=== PATIENT | female | born 1960 | race Caucasian/White ===

== ENCOUNTER 2023-03-24 07:55 | Outpatient (OUT) | payer MEDICARE, OTHER, SELFPAY ==
--- NOTE | 2023-03-24 08:08 | US_ITS ---
The [address] [address] Patient Name: MEHUL CHASE MRN: [id number] date: 1960 Sex: F Assigned Patient Location: Current Patient Location: US Accession/Order Number: [id number] Exam Date: 03/24/2023 08:08 Report Date: 03/24/2023 11:33 At the request of: DYLAN NI Procedure: US renal BI EXAMINATION: US renal BI HISTORY: CHRONIC KIDNEY DISEASE COMPARISON: No relevant comparison available. TECHNIQUE: Ultrasound examination was performed of the kidneys and urinary bladder. FINDINGS: RIGHT KIDNEY: No evidence of pelvocaliectasis, mass, or calculi. Normal renal cortical parenchymal echogenicity. Color Doppler demonstrates blood flow within the kidney. No significant cortical thinning, 1.4 cm in thickness. Kidney: 11.0 x 5.0 x 4.7 cm LEFT KIDNEY: No evidence of pelvocaliectasis, mass, or calculi. Normal renal cortical parenchymal echogenicity. Color Doppler demonstrates blood flow within the kidney. Mild cortical thinning, 1.1 cm in thickness. Kidney: 9.0 x 4.3 x 5.1 cm BLADDER: No visible wall thickening, mass, or calculi. OTHER: Heterogeneous multiseptated large cyst versus cystic mass within left pelvis 18.0 x 15.3 x 11.6 cm. IMPRESSION: 1. No hydronephrosis, mass, or obstructive uropathy bilaterally. 2. Mild cortical thinning, likely age related. 3. Large left pelvic complex cyst versus cystic mass, 18.[address] abdomen and pelvis with IV and oral contrast is recommended for further evaluation. Electronically authenticated by: JOSE BROWNING Date: 03/24/2023 11:33
== END 2023-03-24 07:56 ==
LOC: US 08:01
PROVIDERS: PCP Family Medicine; Visit Provider Internal Medicine Nephrology
DX: E11.22 Type 2 diabetes mellitus with diabetic chronic kidney disease (principal); N18.31 Chronic kidney disease, stage 3a; I12.9 Hypertensive chronic kidney disease with stage 1 through stage 4 chronic kidney disease, or unspecified chronic kidney disease; R19.00 Intra-abdominal and pelvic swelling, mass and lump, unspecified site
CPT/HCPCS: 76775

== ENCOUNTER 2023-04-14 08:17 | Outpatient (OUT) | payer MEDICARE, SELFPAY ==
--- NOTE | 2023-04-14 08:24 | CT_ITS ---
[address] [address] Patient Name: MEHUL CHASE MRN: [id number] date: 1960 Sex: F Assigned Patient Location: CT Current Patient Location: CT Accession/Order Number: [id number] Exam Date: 04/14/2023 09:26 Report Date: 04/14/2023 11:39 At the request of: DENEEN DAVIS Procedure: CT abdomen pelvis wo con EXAM: CT abdomen pelvis wo con HISTORY: Renal mass N28.89, Chronic kidney disease, stage 3 N18.30 COMPARISON: 03/24/2023 TECHNIQUE: Axial CT images were obtained of the abdomen and pelvis without intravenous contrast. Multiplanar reconstructions were performed. ABDOMEN/PELVIS FINDINGS: Lower Chest: Unremarkable. Liver: Normal nonenhanced appearance and contour. Biliary/Gallbladder: Unremarkable. Pancreas: Unremarkable. Spleen: Unremarkable. Adrenal Glands: Unremarkable. Kidneys: No renal calculus or hydronephrosis identified. Gastrointestinal/Peritoneum: No acute abnormality. Mild colonic diverticulosis is present. The appendix is unremarkable. No free air or free fluid. Vascular: Mild scattered atherosclerotic calcifications are present. Lymph Nodes: No enlarged lymph nodes by CT size criteria. Pelvic Organs: There is a large cystic mass in the left adnexal region of the pelvis measuring 15.5 x 11.8 x 17.3 cm. Some internal septation is appreciated with minimal calcification along the inferior margin septations. Further evaluation is limited due to the lack of intravenous contrast. Prior hysterectomy noted. Mild pelvic prolapse is present. Bladder: Unremarkable. Bones: No acute osseous abnormality. Soft tissues: Unremarkable. IMPRESSION: 1. Large cystic mass in the left adnexal region of the pelvis with some internal septation and calcification. Evaluation is limited due to the absence of intravenous contrast. Benign or malignant cystic neoplasm of the pelvis should be considered, possibly of ovarian origin. 2. Prior hysterectomy. 3. Mild pelvic prolapse. 4. Mild colonic diverticulosis. Electronically authenticated by: DASHA LANDEROS Date: 04/14/2023 11:39
== END 2023-04-14 08:18 | disposition home or self-care (01) ==
LOC: CT 08:18
PROVIDERS: PCP Family Medicine; Visit Provider Urology
DX: N28.89 Other specified disorders of kidney and ureter (principal); N18.30 Chronic kidney disease, stage 3 unspecified
CPT/HCPCS: 74176

== ENCOUNTER 2023-05-22 09:50 | Outpatient (OUT) | payer MEDICARE, SELFPAY ==
[2023-05-22 10:12] LABS: Basophils Percent Auto 0.6 % (0.2-2.0); Eosinophils Absolute Auto 0.2 10^3/uL (0.0-0.7); Eosinophils Percent Auto 2.8 % (0.9-7.0); Hematocrit 35.7 % (36.0-48.0); Hemoglobin 11.7 g/dL (12.0-16.0); Immature Granulocytes Abs Auto 0.03 10^3/uL (0.00-0.03); Immature Granulocytes Pct Auto 0.5 % (0.0-0.5); Lymphocytes Percent Auto 32.7 % (20.5-60.0); Mean Corpuscular HGB Conc 32.8 g/dL (29.9-35.2); Mean Corpuscular Hemoglobin 27.7 pg (26.7-34.0); Mean Corpuscular Volume 84.6 fL (81.0-99.0); Mean Platelet Volume 8.4 fL (9.5-13.5); Monocytes Absolute Auto 0.6 10^3/uL (0.3-0.8); Monocytes Percent Auto 9.5 % (1.7-12.0); Neutrophils Absolute Auto 3.3 10^3/uL (1.4-6.5); Neutrophils Percent Auto 53.9 % (43.0-75.0); Platelet Count 360 10^3/uL (150-450); Red Blood Count 4.22 10^6/uL (4.20-5.40); White Blood Count 6.2 10^3/uL (4.0-11.0)
[2023-05-22 10:45] LABS: Alanine Aminotransferase 23 U/L (14-59); Albumin Globulin Ratio 1.1; Albumin Level 4.1 g/dL (3.4-5.0); Alkaline Phosphatase 47 U/L (46-116); Anion Gap 15.7; Aspartate Amino Transferase 25 U/L (15-37); BUN Creatinine Ratio 16.6; Bilirubin Total 0.7 mg/dL (0.2-1.0); Calcium 9.3 mg/dL (8.5-10.1); Carbon Dioxide 24.4 mmol/L (21.0-32.0); Chloride 96 mmol/L (98-107); Estimated GFR (African America 44 (>=60); Estimated GFR (Non-African Ame 36 (>=60); Globulin 3.9 g/dL; Glucose 99 mg/dL (74-106); Potassium 4.1 mmol/L (3.5-5.1); Sodium 132 mmol/L (136-145)
[2023-05-23 04:23] LABS: AFP, Serum, Tumor Marker 1.9 ng/mL (0.0-9.2); Cancer Antigen (CA) 125 25.2 U/mL (0.0-38.1); HCG Tumor Marker 5 mIU/mL (.)
== END 2023-05-22 09:51 | disposition home or self-care (01) ==
LOC: LAB 09:50
PROVIDERS: Physician Assistant; PCP Family Medicine; Visit Provider Obstetrics & Gynecology
DX: R19.00 Intra-abdominal and pelvic swelling, mass and lump, unspecified site (principal); R97.8 Other abnormal tumor markers; R53.83 Other fatigue
CPT/HCPCS: 36415; 80053; 82105; 82378; 83615; 83625; 84443; 84702; 85025; 86304

== ENCOUNTER 2023-05-28 10:27 | Outpatient (OUT) | payer MEDICARE, SELFPAY ==
--- NOTE | 2023-05-28 10:30 | US_ITS ---
The [address] [address] Patient Name: MEHUL CHASE MRN: [id number] date: 1960 Sex: F Assigned Patient Location: [facility] Current Patient Location: [facility] Accession/Order Number: [id number] Exam Date: 05/28/2023 10:31 Report Date: 05/28/2023 10:58 At the request of: ERICK ANN Procedure: US pelvis Ultrasound pelvis, non-obstetric CLINICAL: PELVIC MASS TECHNIQUE: Transabdominal pelvic ultrasound was performed. FINDINGS: Comparison: CT 04/14/2023 Uterus is not visualized, compatible with history of surgical resection. There is a complex cystic mass in the left adnexa/pelvis measuring approximately 20 x 16 x 13 cm. There are thickened internal septations. No significant vascular flow. Ovaries are not visualized. US/US pelvis IMPRESSION: 1. Approximate 20 x 16 x 13 cm complex left adnexal/pelvic mass. This was also seen by CT 04/14/2023. Ovarian cystic neoplasm of indeterminate character should be considered until proven otherwise. Recommend gynecologic follow-up. 2. Hysterectomy. Electronically authenticated by: YOHAN NAVARRETE Date: 05/28/2023 10:58
== END 2023-05-28 10:28 | disposition home or self-care (01) ==
LOC: NOMS 10:27
PROVIDERS: PCP Family Medicine; Visit Provider Physician Assistant
DX: R19.09 Other intra-abdominal and pelvic swelling, mass and lump (principal); R93.5 Abnormal findings on diagnostic imaging of other abdominal regions, including retroperitoneum; N83.9 Noninflammatory disorder of ovary, fallopian tube and broad ligament, unspecified; Z90.710 Acquired absence of both cervix and uterus
CPT/HCPCS: 76856

== ENCOUNTER 2023-06-12 07:50 | Outpatient (OUT) | payer MEDICARE, SELFPAY ==
--- NOTE | 2023-06-12 08:00 | ECG_ITS ---
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
== END 2023-06-12 07:51 | disposition home or self-care (01) ==
LOC: PST 07:51
PROVIDERS: PCP Family Medicine; Visit Provider Obstetrics & Gynecology
DX: Z01.810 Encounter for preprocedural cardiovascular examination (principal); R19.00 Intra-abdominal and pelvic swelling, mass and lump, unspecified site; N83.299 Other ovarian cyst, unspecified side; R10.2 Pelvic and perineal pain; N18.9 Chronic kidney disease, unspecified; E11.22 Type 2 diabetes mellitus with diabetic chronic kidney disease
CPT/HCPCS: 80048; 93005

== ENCOUNTER 2023-06-19 08:19 | Inpatient (IN) | payer MEDICARE, SELFPAY ==
[2023-06-12 08:48] VITALS: BP 135/83; PULSE 90; RESP 16; TEMP 36.3; O2SAT 97; BMI 26.5
[2023-06-18] VITALS (14 sets, daily range): BP systolic 107–155; BP diastolic 65–81; PULSE 55–82; RESP 10–18; TEMP 36–36.8; O2SAT 92–100
[2023-06-18 08:27] LABS: Basophils Absolute Auto 0.1 10^3/uL (0.0-0.1); Basophils Percent Auto 0.8 % (0.2-2.0); Eosinophils Absolute Auto 0.2 10^3/uL (0.0-0.7); Eosinophils Percent Auto 3.2 % (0.9-7.0); Hematocrit 36.3 % (36.0-48.0); Hemoglobin 11.7 g/dL (12.0-16.0); Immature Granulocytes Abs Auto 0.01 10^3/uL (0.00-0.03); Immature Granulocytes Pct Auto 0.2 % (0.0-0.5); Lymphocytes Absolute Auto 2.2 10^3/uL (1.2-3.8); Lymphocytes Percent Auto 36.3 % (20.5-60.0); Mean Corpuscular HGB Conc 32.2 g/dL (29.9-35.2); Mean Corpuscular Hemoglobin 27.7 pg (26.7-34.0); Mean Platelet Volume 8.3 fL (9.5-13.5); Monocytes Absolute Auto 0.5 10^3/uL (0.3-0.8); Monocytes Percent Auto 8.9 % (1.7-12.0); Neutrophils Percent Auto 50.6 % (43.0-75.0); Platelet Count 384 10^3/uL (150-450); Red Blood Count 4.22 10^6/uL (4.20-5.40); Red Cell Distribution Width 15.3 % (11.0-15.0); White Blood Count 5.9 10^3/uL (4.0-11.0)
[2023-06-18 08:55] LABS: Glucometer 118 mg/dL (74-106)
[2023-06-18] MEDS: LACTATED RINGER'S SOLUTION 1,000 ML 50 ML IV (09:06)
[2023-06-18] MEDS: CEFAZOLIN SODIUM/DEXTROSE,ISO 2 GM/50 ML PIGGYBACK IV ×3 (10:18→21:44)
[2023-06-18] MEDS: LACTATED RINGER'S SOLUTION 1,000 ML 125 ML IV ×2 (13:01→21:43)
--- NOTE | 2023-06-18 14:28 | P.CN_ITS ---
Consult Note: HPI Data of Consult Requesting Physician: Dr. Ronald Hunter Primary Care Provider: YANI POON Consult Narrative Reason for consult: medical management Narrative: patient is a 63-year-old female past medical history of non- insulin- dependent type 2 diabetes, hypothyroidism, hypertension, hyperlipidemia and CKD uncertain stage. Today she underwent surgical resection of left adnexal/pelvic mass by Dr. Ronald Hunter. Post operatively she denies any current issues. No nausea or pain. She reports at home her Blood pressure, sugars have been under control. She is compliant with medications. cc:: CC: Sarwat Solo MD Review of Systems ROS Narrative ROS: a complete review of systems were reviewed with patient and are positive as below or listed in History of Chief Complaint. General: no fever, chills, night sweats Head: no headache, trauma, visual changes, nausea or vomiting Skin: no reported rashes, itching or sores Eyes: no blurriness of vision Ears: no reported hearing loss, vertigo, earache, or tinnitus Throat: no sore throat, hoarseness, swelling of neck, or tongue pain Heart: no chest pain Lungs: no shortness of breath or cough GI: no diarrhea or vomiting/nausea Urinary: no urinary urgency, frequency or pain Neuro: no numbness or tingling HEM: no bleeding issues or bruising ENDO: no thyroid problems Psych: no anxiety or depression PFSH PFSH Medical History Surgical History Family History Other Family history of bone cancer Family history of diabetes mellitus Family history of hypertension Family history of seizures Family history of throat cancer Irregular heart beat Social History Within the past year, how often did you have a drink containing alcohol: monthly or less Smoking status: Former smoker Non-prescribed substance use: denies use Previous occupational history: Retired Highest level of school completed/degree received: high school graduate Meds Home Medications and Allergies Home Medications Medication Instructions Recorded Confirmed Type albuterol sulfate 90 mcg/actuation 2 puff inhalation Q4H PRN 06/12/23 06/18/23 History aerosol inhaler (Ventolin HFA) shortness of breath or wheezing atorvastatin 40 mg tablet 40 mg PO QDAY 06/12/23 06/18/23 History hydrochlorothiazide 25 mg tablet 25 mg PO QDAY 06/12/23 06/18/23 History irbesartan 300 mg tablet 300 mg PO QDAY 06/12/23 06/18/23 History lamotrigine 100 mg tablet 100 mg PO Q12H 06/12/23 06/18/23 History levothyroxine 112 mcg tablet 112 mcg PO QDAY 06/12/23 06/18/23 History metformin 500 mg tablet 500 mg PO BID 06/12/23 06/18/23 History ibuprofen 800 mg tablet 800 mg PO Q8H PRN pain 14 days #40 06/18/23 Rx tabs oxycodone-acetaminophen 5 mg-325 1 tab PO Q6H PRN pain 7 days #28 06/18/23 Rx mg tablet (Percocet) tabs Allergies Allergy/AdvReac Type Severity Reaction Status Date / Time bacitracin Allergy Rash Verified 06/12/23 08:26 [From Neosporin ([id number])] neomycin Allergy Rash Verified 06/12/23 08:26 [From Neosporin ([id number])] polymyxin B Allergy Rash Verified 06/12/23 08:26 [From Neosporin ([id number])] Exam Narrative Exam Narrative: General: Patient is alert, and oriented to person, place and time with normal affect, proper hygiene Skin: no visible rashes, or ulcers Head: atraumatic, acephalic Eyes: PERRLA, no nystagmus present, conjunctiva clear, no scleral icterus Ears:normal gross auditory acuity Nose: symmetric, no discharge, no maxillary or frontal sinus tenderness Mouth/Throat: no erythema, exudate, or tonsillar enlargement, normal dentition Neck: no masses palpated, normal thyroid, no JVD or audible carotid bruits Heart: Normal rate and rhythm, no murmurs/rubs/gallops Lungs: no audible wheezes, crackles and normal breath sounds all lung valentine Abdomen: Normal audible bowel sounds, no distension, No palpable masses, no organomegaly, no rebound/guarding/ or rigidity Musculoskeletal: ROM is limited due to being in hospital bed, no swelling bilateral lower extremities Vascular: Normal carotid, radial, femoral, posterior tibial, and dorsalis pedis pulses Lymph: no supraclavicular, axillary, or anterior/posterior cervical adenopathy Neuro: CN II-X grossly intact, normal sensation upper and lower extremities Constitutional Vital Signs, click to edit/add: Last Vital Signs Temp 97.6 F 06/18/23 13:30 Pulse 66 06/18/23 13:30 Resp 16 06/18/23 13:30 BP 115/70 06/18/23 13:30 Pulse Ox 96 06/18/23 13:30 O2 Del Method Room Air 06/18/23 13:30 Results Labs Labs: Short CBC 06/18/23 Range/Units 08:24 WBC 5.9 (4.0-11.0) 10^3/uL Hgb 11.7 L (12.0-16.0) g/dL Hct 36.3 (36.0-48.0) % Plt Count 384 (150-450) 10^3/uL Assessment and Plan Assessment and Plan (1) Pelvic mass: Assessment and Plan: post op currently, pain control and restrictions through primary team, Dr. Hunter (2) Diabetes: Assessment and Plan: sugars have been stable, resume metformin once eating, SSI if needed Qualifiers: Diabetes mellitus type: type 2 Diabetes mellitus terminal gauger supervisor insulin use: without terminal gauger supervisor use Diabetes mellitus complication status: with kidney complications (3) Hypertension: Assessment and Plan: continue irbesartan, hctz (4) Chronic kidney disease: Assessment and Plan: not sure baseline Qualifiers: Chronic kidney disease stage: unspecified stage Qualified Code(s): N1 8.9 - Chronic kidney disease, unspecified (5) Hyperlipidemia associated with type 2 diabetes mellitus: Assessment and Plan: may resume atorvastatin (6) Seizures: Assessment and Plan: continue lamotrigine, no recent seizure history Plan full code SCD's and compression garments for DVT prophylaxis patient is admitted post operatively and expected discharge tomorrow.
[2023-06-18 16:37] LABS: Glucometer 110 mg/dL (74-106)
[2023-06-18] MEDS: HYDROCHLOROTHIAZIDE 25 MG TABLET PO (16:46)
[2023-06-18] MEDS: ATORVASTATIN CALCIUM 40 MG TABLET PO (16:46)
--- NOTE | 2023-06-18 19:28 | RESP.RT ---
No PRN MDI given. No respiratory distress noted.
[2023-06-18] MEDS: LAMOTRIGINE 100 MG TABLET PO (21:43)
[2023-06-18 22:45] LABS: Glucometer 157 mg/dL (74-106)
[2023-06-19 05:13] LABS: Basophils Percent Auto 0.3 % (0.2-2.0); Eosinophils Percent Auto 0.1 % (0.9-7.0); Hemoglobin 9.1 g/dL (12.0-16.0); Immature Granulocytes Abs Auto 0.03 10^3/uL (0.00-0.03); Immature Granulocytes Pct Auto 0.4 % (0.0-0.5); Lymphocytes Absolute Auto 1.6 10^3/uL (1.2-3.8); Lymphocytes Percent Auto 22.4 % (20.5-60.0); Mean Corpuscular HGB Conc 32.5 g/dL (29.9-35.2); Mean Corpuscular Hemoglobin 27.7 pg (26.7-34.0); Mean Corpuscular Volume 85.4 fL (81.0-99.0); Mean Platelet Volume 8.7 fL (9.5-13.5); Monocytes Absolute Auto 0.7 10^3/uL (0.3-0.8); Monocytes Percent Auto 9.8 % (1.7-12.0); Neutrophils Absolute Auto 4.9 10^3/uL (1.4-6.5); Platelet Count 321 10^3/uL (150-450); Red Blood Count 3.28 10^6/uL (4.20-5.40); Red Cell Distribution Width 15.2 % (11.0-15.0); White Blood Count 7.3 10^3/uL (4.0-11.0)
[2023-06-19 05:33] LABS: Estimated GFR (African America 48 (>=60); Estimated GFR (Non-African Ame 40 (>=60)
[2023-06-19 06:00] VITALS: BP 107/67; PULSE 79; RESP 18; TEMP 36.6; O2SAT 91
[2023-06-19 06:41] VITALS: TEMP 36.6
[2023-06-19] MEDS: DOCUSATE SODIUM 100 MG CAPSULE PO (06:41)
[2023-06-19] MEDS: ATORVASTATIN CALCIUM 40 MG TABLET PO (08:23)
[2023-06-19] MEDS: HYDROCHLOROTHIAZIDE 25 MG TABLET PO (08:23)
[2023-06-19] MEDS: LOSARTAN POTASSIUM 50 MG TABLET 100 MG PO (08:23)
[2023-06-19] MEDS: LEVOTHYROXINE SODIUM 112 MCG TABLET PO (08:24)
[2023-06-19] MEDS: LAMOTRIGINE 100 MG TABLET PO (08:24)
[2023-06-19] MEDS: MAGNESIUM HYDROXIDE 2,400 MG/10 ML ORAL.SUSP 2400 MG PO (08:28)
--- NOTE | 2023-06-19 10:28 | CM.NOTE ---
Rounds made with Dr. Malloy. Dr. Malloy consulted for medical management. Potential discharge today per Dr. Hunter.
--- NOTE | 2023-06-19 10:38 | SWNOTE1 ---
SW met with pt to discuss dc needs. Pt lives at home with her and she is independent at home. Pt has no concerns about discharge. SW reviewed Important Message from Medicare form with pt, she voiced understanding, no questions. GRANT made copy, original given to pt and copy placed in chart.
[2023-06-19 11:00] LABS: Glucometer 115 mg/dL (74-106)
[2023-06-19 11:24] VITALS: O2SAT 90
--- NOTE | 2023-06-19 13:23 | PM.GYNPN2 ---
[employer] - PN: Subj Post-Op Interval history: denies n.v.d.f.c denies cp sob ct, pain is minimal, positive flatus, neg bm, denies lightheaded or dizziness Subjective: patient has no complaints, patient desires discharge, pain is well controlled and patient is tolerating oral intake Exam Constitutional Vital Signs, click to edit/add: Last Vital Signs Temp 97.9 F 06/19/23 06:41 Pulse 79 06/19/23 06:00 Resp 18 06/19/23 06:00 BP 107/67 06/19/23 06:00 Pulse Ox 90 L 06/19/23 11:24 O2 Del Method Room Air 06/19/23 11:24 Documenting provider has reviewed patient's vital signs: yes Common normals: no apparent distress Respiratory Common normals: normal respiratory effort and clear to auscultation bilaterally Cardio Common normals: regular rate and regular rhythm GI Common normals: Normal to inspection, nondistended, normoactive bowel sounds present Extremity Common normals: no clubbing, cyanosis or edema and no calf tenderness Results Labs Labs: Short CBC 06/19/23 Range/Units 04:09 WBC 7.3 (4.0-11.0) 10^3/uL Hgb 9.1 L (12.0-16.0) g/dL Hct 28.0 L (36.0-48.0) % Plt Count 321 (150-450) 10^3/uL BMP 06/19/23 04:09 BUN 22.0 H Creatinine 1.33 H [employer] - A/P Assessment and Plan (1) Pelvic mass: (2) Diabetes: Qualifiers: Diabetes mellitus type: type 2 Diabetes mellitus intermediate insulin use: without terminal make up operator use Diabetes mellitus complication status: with kidney complications (3) Hypertension: (4) Chronic kidney disease: Qualifiers: Chronic kidney disease stage: unspecified stage Qualified Code(s): N18.9 - Chronic kidney disease, unspecified (5) Hyperlipidemia associated with type 2 diabetes mellitus: (6) Seizures: Postoperative Procedures: Procedures Operation Date: 06/18/23 09:45 Actual Procedure Side Surgeon p Exploratory Laparotomy WITH LEFT OVARIAN CYSTECTOMY Bilateral Ronald Hunter DO Postoperative day: 1 Postoperative status [employer]: doing well Post-operative plan [employer]: routine post-op care and discharge Fall Risk Details Patton fall scale risk level: Moderate Fall Risk Current medications: Current Medications Albuterol (Albuterol Sulfate 200 Puff/6.7 Gm Inhaler) 2 puff IH Q4H PRN PRN Reason: shortness of breath or wheezing Atorvastatin Calcium (Atorvastatin Calcium 40 Mg Tablet) 40 mg PO QD [facility] Last Admin: 06/19/23 08:23 Dose: 40 mg Docusate Sodium (Docusate Sodium 100 Mg Capsule) 100 mg PO BID PRN PRN Reason: Constipation Last Admin: 06/19/23 06:41 Dose: 100 mg Hydrochlorothiazide (Hydrochlorothiazide 25 Mg Tablet) 25 mg PO QD [facility] Last Admin: 06/19/23 08:23 Dose: 25 mg Lactated Ringer's (Lactated Ringers) 1,000 mls @ 125 mls/hr IV Q8H [facility] Last Admin: 06/19/23 08:24 Dose: Not Given Ibuprofen (Ibuprofen 600 Mg Tablet) 800 mg PO Q6H PRN PRN Reason: Pain Scale 4-6 Insulin Aspart (Insulin Aspart 300 Unit/3 Ml Pen) 3 - 15 unit SUBQ [facility]; Protocol Last Admin: 06/19/23 11:05 Dose: Not Given Ketorolac Tromethamine (Ketorolac Tromethamine 30 Mg/Ml Vial) 30 mg IVP Q6H PRN PRN Reason: Pain Lamotrigine (Lamotrigine 100 Mg Tablet) 100 mg PO BID [facility] Last Admin: 06/19/23 08:24 Dose: 100 mg Levothyroxine Sodium (Levothyroxine Sodium 112 Mcg Tablet) 112 mcg PO QD [facility] Last Admin: 06/19/23 08:24 Dose: 112 mcg Losartan Potassium (Losartan Potassium 50 Mg Tablet) 100 mg PO QD [facility] Last Admin: 06/19/23 08:23 Dose: 100 mg Ondansetron HCl (Ondansetron Pf 4 Mg/2 Ml Vial) 4 mg IV Q6H PRN PRN Reason: Nausea Oxycodone/Acetaminophen (Oxycodone Hcl/Acetaminophen 1 Tab Tablet) 1 tab PO Q6H PRN PRN Reason: Pain Last Admin: 06/19/23 05:30 Dose: 1 tab Oxycodone/Acetaminophen (Oxycodone Hcl/Acetaminophen 1 Tab Tablet) 2 tab PO Q6H PRN PRN Reason: Pain Promethazine HCl (Promethazine Hcl 25 Mg/Ml Vial) 12.5 mg IV Q6H PRN PRN Reason: Nausea And Vomiting Simethicone (Simethicone 80 Mg Tab.Chew) 80 mg PO PCHS PRN PRN Reason: Abdominal Distention Temazepam (Temazepam 15 Mg Capsule) 30 mg PO QHS PRN PRN Reason: Sleep Time Spent With Patient Time: Total time spent is greater than 50% in coordination of care (as documented) at patient's floor/unit and/or counseling patient: Time with patient: 25 - 35 minutes
[2023-06-19 14:24] LABS: Basophils Percent Auto 0.3 % (0.2-2.0); Eosinophils Absolute Auto 0.1 10^3/uL (0.0-0.7); Eosinophils Percent Auto 1.2 % (0.9-7.0); Hematocrit 32.2 % (36.0-48.0); Hemoglobin 10.5 g/dL (12.0-16.0); Immature Granulocytes Abs Auto 0.04 10^3/uL (0.00-0.03); Immature Granulocytes Pct Auto 0.5 % (0.0-0.5); Lymphocytes Absolute Auto 2.6 10^3/uL (1.2-3.8); Lymphocytes Percent Auto 30.4 % (20.5-60.0); Mean Corpuscular HGB Conc 32.6 g/dL (29.9-35.2); Mean Corpuscular Hemoglobin 27.5 pg (26.7-34.0); Mean Corpuscular Volume 84.3 fL (81.0-99.0); Monocytes Absolute Auto 0.7 10^3/uL (0.3-0.8); Monocytes Percent Auto 7.8 % (1.7-12.0); Neutrophils Absolute Auto 5.2 10^3/uL (1.4-6.5); Neutrophils Percent Auto 59.8 % (43.0-75.0); Platelet Count 367 10^3/uL (150-450); Red Blood Count 3.82 10^6/uL (4.20-5.40); Red Cell Distribution Width 15.2 % (11.0-15.0); White Blood Count 8.6 10^3/uL (4.0-11.0)
--- NOTE | 2023-06-27 | DS_ITS ---
DISCHARGE DATE: ??06/27/2023 PRIMARY DIAGNOSES: 1.? Left adnexal mass. 2.? Left ovarian cyst. 3.? Pelvic pain. PROCEDURE:? Exploratory laparotomy with left ovarian cystotomy, left ovarian cystectomy. HOSPITAL COURSE:? As expected.? Please see chart for full details.? LABORATORY DATA:? Please see chart. COMPLICATIONS:? None. DISCHARGE CONDITION:? Stable. CONSULTATION:? Anesthesia. DISCHARGE INSTRUCTIONS: 1.? Diet:? Regular. 2.? Medications: a.? Percocet 5/325 one to two p.o. every 4-6 hours p.r.n. pain. b.? Motrin 800 one p.o. every 8 hours p.r.n. pain. 3.? Followup in one week. Restrictions:? Pelvic rest for 6 weeks.? No heavy lifting.? May drive when pain free and no longer on narcotics. MTDD
--- NOTE | 2023-06-27 07:50 | PM.ONB ---
Brief Operative Note Date of procedure: 06/27/23 Pre-op diagnosis: lt adnexal mass, pelvic pain Post-op diagnosis: same as pre-op Procedure: NAME OF PROCEDURE: [ ]GUSTAVO BSO WITH CYSTOSCOPY PROCEDURE: Patient was taken back to the Operating Room where she was given general anesthesia without difficulty. She was then prepped and draped in the normal sterile fashion. A Pfannenstiel skin incision was then made 2 cm above the symphysis and pubis and carried down to underlying rectus fascia using a Bovie. The fascia was incised in the midline and extended bilaterally using Treadwell scissors. Two Ramana clamps were placed on the superior aspect of the fascia and dissected off the underlying rectus muscle. The same was performed on the inferior aspect as well. The muscle was then in the midline. The peritoneum was identified and entered bluntly. Peritoneum was then extended superiorly and inferiorly with good visualization of the bladder. An O'Jkopuakd-L-Prhyut retractor was placed into the patient's abdomen. The bowel was packed away with moist laparotomy sponges and the bladder blade was inserted. The lt ovary was idenitified which appeared cystic in nature, approx 20cm in size, in attempted to localize ovary and cyst, cyst ruptured and fluid was collected, additional fluid removed, several cysts noted, additional fluid and cyst was removed, could not remove ovary in enitirity dt to adhesion to colon, pelvic side wall and ureter, it was decided to leave remainder of ovary since low suspicion for ovarian ca. Excellent hemostasis was assured. The patient's abdomen was copiously irrigated using warm saline. After excellent hemostasis was assured, all instruments were removed from the patient's abdomen. The patient's peritoneum was closed using 3-0 Vicryl in a running fashion. The patient's fascia was closed using #0 Vicryl in a running fashion. The patient's skin was closed using jurgen. The patient tolerated the procedure well. Sponge, lap, and needle counts were correct times two. Patient taken to the Recovery Room in stable condition. please note robotic hysterectomy was attempted and aborted dt size of uterus and extensive endometriosis with adhesions Anesthesia: ALEXA Surgeon: Ronald Hunter Supervisor Delivery Department: Erica Vazquez Estimated blood loss (mL): 100 Pathology: other (fluid and cyst wall) Condition: stable Disposition: PACU
== END 2023-06-19 14:52 | disposition home or self-care (01) | DRG 743 ==
LOC: SURGOUT 08:40 → MS 08:40
PROVIDERS: Anesthesiology; Admitting Provider Obstetrics & Gynecology; PCP Family Medicine; Visit Provider Obstetrics & Gynecology
DX: N83.292 Other ovarian cyst, left side (principal); E11.40 Type 2 diabetes mellitus with diabetic neuropathy, unspecified; E11.22 Type 2 diabetes mellitus with diabetic chronic kidney disease; I12.9 Hypertensive chronic kidney disease with stage 1 through stage 4 chronic kidney disease, or unspecified chronic kidney disease; N18.9 Chronic kidney disease, unspecified; E78.5 Hyperlipidemia, unspecified; G40.909 Epilepsy, unspecified, not intractable, without status epilepticus; G43.909 Migraine, unspecified, not intractable, without status migrainosus; K21.9 Gastro-esophageal reflux disease without esophagitis; J45.909 Unspecified asthma, uncomplicated; R10.2 Pelvic and perineal pain; E89.0 Postprocedural hypothyroidism; N73.6 Female pelvic peritoneal adhesions (postinfective); N80.9 Endometriosis, unspecified; Z85.850 Personal history of malignant neoplasm of thyroid; Z87.891 Personal history of nicotine dependence; Z88.1 Allergy status to other antibiotic agents; Z90.710 Acquired absence of both cervix and uterus; Z98.890 Other specified postprocedural states; Z83.3 Family history of diabetes mellitus; Z82.49 Family history of ischemic heart disease and other diseases of the circulatory system; Z80.8 Family history of malignant neoplasm of other organs or systems; Z82.0 Family history of epilepsy and other diseases of the nervous system; Z79.84 Long term (current) use of oral hypoglycemic drugs; Z79.890 Hormone replacement therapy; Z79.899 Other long term (current) drug therapy
CPT/HCPCS: 36415; 82565; 82948; 84520; 85025; 88112; 94667; 94668; 94761; 96365; J2704

== ENCOUNTER 2023-07-01 10:54 | Outpatient (OUT) | payer MEDICARE, SELFPAY ==
[2023-07-01 11:37] LABS: Hemoglobin 10.6 g/dL (12.0-16.0)
[2023-07-01 11:38] LABS: Bilirubin Urine NEGATIVE (NEGATIVE); Blood Urine NEGATIVE (NEGATIVE); Clarity Urine CLEAR (CLEAR); Color Urine LT. YELLOW (YELLOW); Glucose Urine UA NEGATIVE (NEGATIVE); Ketones Urine NEGATIVE (NEGATIVE); Leukocyte Esterase Urine NEGATIVE (NEGATIVE); Nitrite Urine NEGATIVE (NEGATIVE); Protein Urine NEGATIVE (NEG/TRACE); Urobilinogen Urine 0.2 EU/dL (0.2-1.0)
[2023-07-01 11:43] LABS: Creatinine Urine Random 37.24 mg/dL (20.00-300.00); Protein Creatinine Ratio Urine 0.25; Total Protein Urine Random 9.4 mg/dL (<=11.9)
[2023-07-01 11:46] LABS: Alanine Aminotransferase 15 U/L (14-59); Albumin Globulin Ratio 0.9; Albumin Level 3.5 g/dL (3.4-5.0); Alkaline Phosphatase 57 U/L (46-116); Anion Gap 12.9; Aspartate Amino Transferase 17 U/L (15-37); BUN Creatinine Ratio 20.6; Bilirubin Total 0.4 mg/dL (0.2-1.0); Carbon Dioxide 22.6 mmol/L (21.0-32.0); Chloride 97 mmol/L (98-107); Estimated GFR (African America >60 (>=60); Estimated GFR (Non-African Ame 51 (>=60); Globulin 3.9 g/dL; Glucose 96 mg/dL (74-106); Magnesium 2.2 mg/dL (1.8-2.4); Phosphorus 2.9 mg/dL (2.6-4.7); Potassium 4.5 mmol/L (3.5-5.1); Sodium 128 mmol/L (136-145); Total Protein 7.4 g/dL (6.4-8.2); Uric Acid 6.2 mg/dL (2.6-6.0)
[2023-07-02 14:10] LABS: PTH, Intact 54 pg/mL (15-65)
== END 2023-07-01 10:55 | disposition home or self-care (01) ==
LOC: LAB 10:57
PROVIDERS: PCP Family Medicine; Visit Provider Internal Medicine Nephrology
DX: I12.9 Hypertensive chronic kidney disease with stage 1 through stage 4 chronic kidney disease, or unspecified chronic kidney disease (principal); N18.31 Chronic kidney disease, stage 3a; E11.22 Type 2 diabetes mellitus with diabetic chronic kidney disease
CPT/HCPCS: 36415; 80053; 81003; 82306; 82570; 83735; 83970; 84100; 84156; 84550; 85014; 85018

== ENCOUNTER 2024-04-30 11:32 | Outpatient (OUT) | payer MEDICARE, SELFPAY ==
[2024-04-30 12:31] LABS: Basophils Percent Auto 0.4 % (0.2-2.0); Eosinophils Absolute Auto 0.2 10^3/uL (0.0-0.7); Eosinophils Percent Auto 3.3 % (0.9-7.0); Hematocrit 31.5 % (36.0-48.0); Immature Granulocytes Abs Auto 0.02 10^3/uL (0.00-0.03); Immature Granulocytes Pct Auto 0.3 % (0.0-0.5); Lymphocytes Absolute Auto 2.3 10^3/uL (1.2-3.8); Lymphocytes Percent Auto 34.1 % (20.5-60.0); Mean Corpuscular HGB Conc 31.7 g/dL (29.9-35.2); Mean Corpuscular Hemoglobin 26.7 pg (26.7-34.0); Mean Platelet Volume 9.2 fL (9.5-13.5); Monocytes Absolute Auto 0.6 10^3/uL (0.3-0.8); Monocytes Percent Auto 8.9 % (1.7-12.0); Neutrophils Absolute Auto 3.6 10^3/uL (1.4-6.5); Platelet Count 391 10^3/uL (150-450); Red Blood Count 3.75 10^6/uL (4.20-5.40); Red Cell Distribution Width 14.4 % (11.0-15.0); White Blood Count 6.9 10^3/uL (4.0-11.0)
[2024-04-30 14:28] LABS: Alanine Aminotransferase 18 U/L (14-59); Albumin Level 4.1 g/dL (3.4-5.0); Alkaline Phosphatase 66 U/L (46-116); Anion Gap 18.5; Aspartate Amino Transferase 19 U/L (15-37); BUN Creatinine Ratio 16.6; Bilirubin Total 0.4 mg/dL (0.2-1.0); Calcium 8.8 mg/dL (8.5-10.1); Carbon Dioxide 20.7 mmol/L (21.0-32.0); Chloride 96 mmol/L (98-107); Estimated GFR (African America 40 (>=60); Estimated GFR (Non-African Ame 33 (>=60); Glucose 101 mg/dL (74-106); Potassium 4.2 mmol/L (3.5-5.1); Sodium 131 mmol/L (136-145); Total Protein 8.1 g/dL (6.4-8.2)
[2024-05-03 14:09] LABS: Lamotrigine (Lamictal), Serum 7.8 ug/mL (2.0-20.0)
== END 2024-04-30 11:33 | disposition home or self-care (01) ==
LOC: LAB 11:37
PROVIDERS: PCP Family Medicine; Visit Provider Physician Assistant
DX: G40.409 Other generalized epilepsy and epileptic syndromes, not intractable, without status epilepticus (principal)
CPT/HCPCS: 36415; 80053; 80175; 85025

== ENCOUNTER 2024-05-18 11:25 | Outpatient (OUT) | payer MEDICARE, SELFPAY ==
--- NOTE | 2024-05-18 11:32 | XR_ITS ---
[place] [id number] Patient Name: MEHUL CHASE MRN: [id number] date: 1960 Sex: F Assigned Patient Location: [facility] Current Patient Location: Accession/Order Number: [id number] Exam Date: 05/18/2024 11:40 Report Date: 05/19/2024 15:15 At the request of: YANI POON Procedure: XR abdomen min 2V EXAMINATION: XR abdomen min 2V HISTORY: Constipation, Abdominal Mass, Blood In Stool COMPARISON: No relevant comparison available. FINDINGS: BOWEL GAS PATTERN: No abnormal dilation or deviation. Moderate stool in the ascending colon CALCIFICATIONS: None significant. OTHER: Negative. No abnormal gaseous collections. XR/XR abdomen min 2V IMPRESSION: Moderate stool in the right colon, nonobstructive gas pattern Electronically authenticated by: RANJIT MEYERS Date: 05/19/2024 15:15
== END 2024-05-18 11:26 | disposition home or self-care (01) ==
LOC: RAD 11:27
PROVIDERS: PCP Family Medicine; Visit Provider Family Medicine
DX: R19.04 Left lower quadrant abdominal swelling, mass and lump (principal); K92.1 Melena; K59.00 Constipation, unspecified
CPT/HCPCS: 74019

== ENCOUNTER 2024-05-24 07:55 | Outpatient (OUT) | payer MEDICARE, SELFPAY ==
--- OUTSIDE RECORDS SUMMARY | 2024-05-24 07:57 | XMS_ITS | CCD ---
Author Organization [facility] Care Team Providers Care Colors Custodian Name Role Phone DR ANNETTA POON Primary Care Unavailable FELICIANO ., MR DARNELL Consulting Unavailable MINOR .OMAYRA Admitting Unavailable MINOR .OMAYRA Attending Unavailable RANJIT GAFFNEY Consulting Unavailable Nora Ni Unavailable Wisam DAVIS Attending Unavailable NORA NI Referring Unavailable Annetta Poon MD Primary Care Provider Annetta Poon MD Primary Care Provider [phone] ANNETTA POON Referring Unavailable ANNETTA POON Primary Care Unavailable ANNETTA POON Attending Unavailable FANI HARVEY Attending Unavailable ANNETTA POON Attending Unavailable Allergies Allergy Classification Reported Allergen(s) Allergy Type Date of Onset Reaction(s) Facility (3 sources) Bacitracin / Neomycin / Polymyxin B Drug Allergy 5 rash [facility] (1 source) Bacitracin Drug Allergy 3 [facility] (1 source) Bacitracin / Polymyxin B Drug Allergy 3 [facility] (1 source) Gramicidin Drug Allergy 3 [facility] (1 source) Neomycin Drug Allergy 3 [facility] (1 source) Polymyxin B Drug Allergy 3 [facility] (2 sources) Neomycin-Polymyx in-Gramicidin Drug Intolerance 8 Rash [facility] Medications Current Medications Medication Drug Class(es) Dates Sig (Normalized) Sig (Original) [id number] 200 actuat albuterol 0.09 mg/actuat metered dose inhaler (1 source) beta2-Adrenergic Agonist Start: 05-26-20 23 take 2 puff(s) by inhalation every four hours for wheezing albuterol HFA 90 mcg/act inhaler Indications: Pneumonia of right middle lobe due to infectious organism Inhale 2 puffs every 4 (four) hours if needed for wheezing. 18 g 1 05/26/2023 Active amLODIPine 5 mg oral tablet (1 source) Dihydropyridine Calcium Channel Baldomero Start: 07-08-20 take 1 tablet by mouth every twenty-four hours amLODIPine Besylate 5 MG 1 tablet Orally Once a day for 90 days Jun, Active atorvastatin 40 mg oral tablet (3 sources) HMG-CoA Reductase Inhibitor Start: 05-15-20 take 1 tablet by mouth in the morning atorvastatin (Lipitor) 40 MG tablet Indications: Hypertriglyceridemia (CMS/HCC) Take 1 tablet (40 mg) by mouth in the morning. 100 tablet 3 05/15/2023 Active Fish Oils (1 source) omega-3 (FISH OI L) 300 MG capsule Fish Oil 0 Active hydroCHLOROthiazide 25 mg oral tablet (2 sources) Thiazide Diuretic Start: 05-15-20 take 1 tablet by mouth in the morning hydroCHLOROthiazide (HYDRODiuril) 25 MG tablet Indications: Essential hypertension (CMS/HCC) Take 1 tablet (25 mg) by mouth in the morning. 100 tablet 3 05/15/2023 Active take 1 tablet by robbie th every twenty-four hours hydroCHLOROthiazide 25 MG 1 tablet in e morning Orally Once a day Active irbesartan 300 mg oral tablet (3 sources) Angiotensin 2 Receptor Baldomero Start: 04-02-2023 irbesartan (Avapro) 300 MG tablet Refills(s) 0 0 04/02/2023 Active lamoTRIgine 100 mg oral tablet (4 sources) Mood Stabilizer, Anti-epileptic Agent Start: 04-02-2023 lamoTRIgine (LaMICtal) 100 MG tablet Refills(s) 0 0 04/02/2023 Active levothyroxine sodium 0.112 mg oral tablet (4 sources) l-Thyroxine Start: 05-15-2023 take 1 tablet by mouth before mealtime levothyroxine (Synthroid, Levoxyl) 112 MCG tablet Indications: Acquired hypothyroidism (CMS/HCC) Take 1 tablet (112 mcg) by mouth in the morning. Take before meals. 100 tablet 3 05/15/2023 Active take 1 tablet by robbie th once daily in the morning Levothyroxine Sodium 112 MCG 1 tablet in the morning on an empty stomach Orally EVERY DAY BUT MONDAYS AND THURSDAYS Active metFORMIN hydrochloride 500 mg oral tablet (3 sources) Biguanide Start: 01-13-2023 take 1 tablet by mouth in the morning metFORMIN (Glucophage) 500 MG tablet Take 500 mg by mouth in the morning and 500 mg in the evening. Take with meals. 0 01/13/2023 Active omeprazole 20 mg delayed release oral capsule (4 sources) Proton Pump Inhibitor take 1 capsule by mouth once daily omeprazole (PRILOSEC) 20 MG delayed release capsule Take 20 mg by mouth daily 0 Active take 1 capsule by mo uth in the morning, then take 1 capsule by mouth at bedtime omeprazole (PriLOSEC) [address] capsule TAKE 1 CAPSULE BY MOUTH IN THE MORNING AND 1 AT BEDTIME 0 Active valsartan 160 mg oral tablet (2 sources) Angiotensin 2 Receptor Baldomero take 1 tablet by mouth once daily valsartan (DIOVAN) 160 MG tablet Take 160 mg by mouth daily 0 Active Problems Active Problems Problem Classification Problem Date Documented Da te Episodic/Chronic Chronic kidney disease (5 sources) Chronic kidney disease stage 3A ; Translations: [Chronic kidney disease, stage 3a] Onset: 05-13-2023 05-13-2023 Chronic Deficiency and other anemia (1 source) Anemia, unspecified Episodic Delirium, dementia, and amnestic and other cognitive disorders (1 source) Postconcussion syndrome; Translations: [Postconcussional syndrome] Onset: 05-13-2023 05-13-2023 Chronic Diabetes mellitus with complications (5 sources) Type 2 diabetes mellitus; Translations: [Type 2 diabetes mellitus with diabetic chronic kidney disease] Onset: 05-13-2023 Chronic Diabetes mellitus without complication (2 sources) Diabetes mellitus; Translations: [Type 2 diabetes mellitus without complications] Onset: 05-13-2023 05-13-2023 Chronic Disorders of lipid metabolism (1 source) Hypertriglyceridemia ; Translations: [Pure hyperglyceridemia] Onset: 05-13-2023 05-13-2023 Chronic Epilepsy; convulsions (2 sources) Other generalized epilepsy and epileptic syndromes, not intractable, without status epilepticus; Translations: [Generalized convulsive epilepsy, without mention of intractable epilepsy] Onset: 05-13-2023 05-13-2023 Chronic Epilepsy; convulsions (2 sources) Seizure; Translations: [Unspecified convulsions] Onset: 05-13-2023 05-13-2023 Episodic Essential hypertension (5 sources) Essential hypertension; Translations: [Essential (primary) hypertension] Onset: 05-13-2023 Chronic Fluid and electrolyte disorders (1 source) Hypo-osmolality and hyponatremia Episodic Gastrointestinal hemorrhage (4 sources) Hemorrhage of anus and rectum; Translations: [HEMORRHAGE OF ANUS AND RECTUM] Onset: 02-09-2023 Episodic Hemorrhoids (1 source) Unspecified hemorrhoids; Translations: [UNSPECIFIED HEMORRHOIDS] Onset: 02-11-2023 Episodic Hypertension with complications and secondary hypertension (2 sources) Hypertensive renal disease; Translations: [Hypertensive chronic kidney disease with stage 1 through stage 4 chronic kidney disease, or unspecified chronic kidney disease] Chronic Menopausal disorders (1 source) Decreased estrogen level; Translations: [Other primary ovarian failure] Onset: 05-26-2023 05-26-2023 Chronic Menopausal disorders (1 source) Hormone replacement therapy; Translations: [HORMONE REPLACEMENT THERAPY] Onset: 02-11-2023 Episodic Other aftercare (1 source) Other long-term (current) drug therapy; Translations: [OTH NURSING HOME CURRENT DRUG THERAPY] Onset: 02-11-2023 Episodic Other aftercare (1 source) 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; Translations: [NURSING HOME USE ORAL HYPOGLYCEMIC DX] Onset: 02-11-2023 Episodic Other diseases of kidney and ureters (1 source) Disorder of kidney and/or ureter; Translations: [Other specified disorders of kidney and ureter] Chronic Other nutritional; endocrine; and metabolic disorders (1 source) Cholesterol level - finding; Translations: [Lipoprotein deficiency] Onset: 05-13-2023 05-13-2023 Chronic Other screening for suspected conditions (not mental disorders or infectious disease) (3 sources) Measurement finding above reference range; Translations: [Unspecified abnormal finding in specimens from other organs, systems and tissues] Onset: 05-13-2023 05-13-2023 Episodic Screening and history of mental health and substance abuse codes (1 source) Personal history of nicotine dependence; Translations: [PERSONAL HISTORY OF NICOTINE DEPEND] Onset: 02-11-2023 Episodic Thyroid disorders (2 sources) Hypothyroidism; Translations: [Hypothyroidism, unspecified] Onset: 05-13-2023 05-13-2023 Chronic Past or Other Problems Problem Classification Problem Date Documented Da te Episodic/Chronic Chronic kidney disease (2 sources) Chronic kidney disease Conditions associated with dizziness or vertigo (2 sources) Dizziness; Translations: [Dizziness and giddiness] Onset: 11-27-2017 05-13-2023 Episodic E Codes: Fall (1 source) Fall; Translations: [Unspecified fall, initial encounter] Onset: 11-27-2017 Resolved: 01-28-2018 01-28-2018 Episodic Gastritis and duodenitis (1 source) Gastritis; Translations: [Gastritis, unspecified, without bleeding] Onset: 05-13-2023 05-13-2023 Episodic Intracranial injury (2 sources) Concussion with no loss of consciousness; Translations: [Concussion without loss of consciousness, initial encounter] Onset: 11-27-2017 05-13-2023 Episodic Other gastrointestinal disorders (1 source) Pelvic mass; Translations: [Intra-abdominal and pelvic swelling, mass and lump, unspecified site] Onset: 05-13-2023 05-13-2023 Episodic Other injuries and conditions due to external causes (2 sources) Minor head injury; Translations: [Unspecified injury of head, initial encounter] Onset: 11-27-2017 05-13-2023 Episodic Other lower respiratory disease (1 source) Nodule of lung; Translations: [Solitary pulmonary nodule] Onset: 05-13-2023 05-13-2023 Episodic Pneumonia (except that caused by tuberculosis or sexually transmitted disease) (1 source) Infective pneumonia; Translations: [Pneumonia, unspecified organism] Onset: 05-26-2023 05-26-2023 Episodic Results Test Name Value Interpretation Reference Range Facility DBT Breast - bilateral scree scottyn 01-08-2024 No evidence of malignancy. Advise annual screening mammography. BI-RADS 2 BIRADS: BIRADS - CATEGORY 2 Benign Findings. Normal interval follow-up is recommended in 12 months. OVERALL ASSESSMENT - BENIGN A letter of notification will be sent to the patient regarding the results. The [employer] recommends annual mammograms for women 40 years and older. [facility] RIS CONSOLIDATED EXAMINATION: SCREENING DIGITAL BILATERAL MAMMOGRAM WITH TOMOSYNTHESIS, 01/07/2024 TECHNIQUE: Screening mammography was performed with tomosynthesis including MLO and CC views of the bilateral breasts. Computer aided detection was used for the interpretation of this exam. COMPARISON: 27 August 2019; 10 April 2017 from [facility] HISTORY: Screening. Positive family history of breast cancer; paternal aunt at 70. 10 year history of oral contraception. No hormonal replacement therapy. FINDINGS: Both breasts are composed of scattered fibroglandular density. No skin thickening, nipple contour changes, suspicious calcifications, suspicious masses, areas of architectural distortion or significant interval changes are noted. Benign-appearing calcifications are demonstrated. [facility] RIS CONSOLIDATED DBT Breast - bilateral scree Scottyrdered By: Janelle Rivas on 01-08-2024 [facility] Work Phone: [facility] DIGITAL SCREEN BILElsa Pelaez 01-08-2024 [facility] DIGITAL SCREEN BILATERAL EXAMINATION: SCREENING DIGITAL BILATERAL MAMMOGRAM WITH TOMOSYNTHESIS, 01/07/2024 TECHNIQUE: Screening mammography was performed with tomosynthesis including MLO and CC views of the bilateral breasts. Computer aided detection was used for the interpretation of this exam. COMPARISON: 27 August 2019; 10 April 2017 from [facility] HISTORY: Screening. Positive family history of breast cancer; paternal aunt at 70. 10 year history of oral contraception. No hormonal replacement therapy. FINDINGS: Both breasts are composed of scattered fibroglandular density. No skin thickening, nipple contour changes, suspicious calcifications, suspicious masses, areas of architectural distortion or significant interval changes are noted. Benign-appearing calcifications are demonstrated. IMPRESSION: No evidence of malignancy. Advise annual screening mammography. BI-RADS 2 BIRADS: BIRADS - CATEGORY 2 Benign Findings. Normal interval follow-up is recommended in 12 months. OVERALL ASSESSMENT - BENIGN A letter of notification will be sent to the patient regarding the results. [employer] recommends annual mammograms for women 40 years and older. Interpreted by: Janelle Rivas MD Signed by: Janelle Rivas MD 01/08/24 Final result Normal [facility] DBT Breast - bilateral dimitris fajardorita 01-07-2024 Radiology Study observation (narrative) [facility] RAD - Ultrasound Reporton RAD - Ultrasound Report [id number] CD:127 Normal [facility] Ambulatory Visit Summaryon 0 6-14-2023 Ambulatory Visit Summary MEHUL CHASE :1960 Visit Date:04/02/2023 Ambulatory Visit Instructions Your Diagnosis Pelvic mass Chronic kidney disease, stage 3 Tests Performed Urnls Dip Stick Auto w/o Microscopy POC 26[address] CT Abdomen/Pelvis w/o Contrast -- Results Pending -- Please visit your patient portal for your results or contact your primary care physician. Your Care Team Attending Physician - RYAN SEXTON, Wisam Avery Primary Care Physician - NORA NI MD Referring Physician - NORA NI MD This Is Your Medications List atorvastatin (atorvastatin 40 mg Tab) hydrochlorothiazide (hydrochlorothiazide 25 mg Tab) irbesartan (irbesartan 300 mg Tab) lamotrigine (lamotrigine 100 mg Tab) levothyroxine (levothyroxine 112 mcg (0.112 mg) Tab) metformin (metformin 500 mg Tab) omeprazole (omeprazole 40 mg Cap-DR) Procedures Performed Hysterectomy, Thyroidectomy, Tonsillectomy. Discharge Vitals Heart Rate (Peripheral) 95 Blood Pressure 152/80 Height 157.4 cm Height 62 in Weight 69.0 kg Weight 151.8 lb BMI 27.85 What to do next You Need to Schedule the Following Appointments Follow Up with YRAN SEXTON, Wisam Avery, ARTEM When: Where: [address] [place] [address] Medications What When Instructions Unchanged atorvastatin (atorvastatin 40 mg Tab) Unchanged hydrochlorothiazide (hydrochlorothiazide 25 mg Tab) Unchanged irbesartan (irbesartan 300 mg Tab) Unchanged lamotrigine (lamotrigine 100 mg Tab) Unchanged levothyroxine (levothyroxine 112 mcg (0.112 mg) Tab) Unchanged metformin (metformin 500 mg Tab) Unchanged omeprazole (omeprazole 40 mg Cap-DR) Test Results Urnls Dip Stick Auto w/o Microscopy POC 38461 (04/02/2023) Bilirubin Urine Dipstick - Negative Blood Urine Dipstick - Negative Glucose Urine Dipstick - Negative Ketones Urine Dipstick - Negative Leukocytes Urine Dipstick - Negative Nitrite Urine Dipstick - Negative Protein Urine Dipstick - Negative Specific [place] Urine Dipstick - 1.015 Urine Appearance Urine Dipstick - Clear Urine Color Urine Dipstick - Yellow Urobilinogen Urine Dipstick - Normal 0.2-1 EU/dl pH Urine Dipstick - 5.5 Allergies No Known Allergies Problems Ongoing - Any problem that you are currently receiving treatment for. Chronic kidney disease, stage 3 Diabetes Hypertension Hypothyroid Pelvic mass Seizure disorder [employer] Pelvic Mass, Female A pelvic mass is an abnormal growth in the pelvis. The pelvis is the area between the hip bones. It includes the bladder, rectum, uterus, and ovaries. What are the causes? Common causes of pelvic masses include: ? Ovarian cysts. These are fluid-filled sacs that form on an ovary. ? Tumors. These may be cancerous (malignant) or noncancerous (benign). Noncancerous tumors in the uterus are called uterine fibroids. ? Ectopic . This is when the fertilized egg attaches (implants) outside the uterus. ? Infections. What are the signs or symptoms? Many times, there are no symptoms, and the mass may be found during a routine exam. If there are symptoms, they may include: ? Abdominal pain. ? Nausea and vomiting. How is this diagnosed? Your health care provider may recommend that you have tests to diagnose the cause of the pelvic mass. The following tests may be done if a pelvic mass is found: ? Physical exam. ? Blood tests. ? Imaging tests: ? X-rays. ? Ultrasound. ? CT scan. ? MRI. ? A surgery to look inside your abdomen with cameras (laparoscopy). ? A biopsy that is performed with a needle or during laparoscopy or surgery. In some cases, what seemed like a pelvic mass may actually be something else, such as a mass in one of the organs that is near the pelvis, an infection called an abscess, or scar tissue that formed after a surgery. A physical exam and tests may be done once, or they may be done regularly for a period of time. Exams and tests that are done regularly will help monitor whether the mass or tissue change is growing and becoming a concern. How is this treated? Treatment is not always needed for a pelvic mass. Your health care provider may recommend careful monitoring (watchful waiting) and regular tests and exams. Treatment will depend on the cause of the mass. Follow these instructions at home: What you need to do at home will depend on the cause of the mass. Follow the instructions that your health care provider gives to you. In general: ? Take bywb-mvp-swevgga and prescription medicines only as told by your health care provider. ? If you were prescribed an antibiotic medicine, take it as told by your health care provider. Do not stop taking the antibiotic even if you start to feel better. ? Return to your normal activities as told by your health care provider. Ask your health care provider what activi (more content not included)... Normal [facility] Formson 04-02-2023 Forms [id number] CD:127 Normal [facility] Patient Educationon 04-02-20 23 Patient Education Obstetrics and Gynecology Pelvic Mass, Female A pelvic mass is an abnormal growth in the pelvis. The pelvis is the area between the hip bones. It includes the bladder, rectum, uterus, and ovaries. What are the causes? Common causes of pelvic masses include: ? Ovarian cysts. These are fluid-filled sacs that form on an ovary. ? Tumors. These may be cancerous (malignant) or noncancerous (benign). Noncancerous tumors in the uterus are called uterine fibroids. ? Ectopic . This is when the fertilized egg attaches (implants) outside the uterus. ? Infections. What are the signs or symptoms? Many times, there are no symptoms, and the mass may be found during a routine exam. If there are symptoms, they may include: ? Abdominal pain. ? Nausea and vomiting. How is this diagnosed? Your health care provider may recommend that you have tests to diagnose the cause of the pelvic mass. The following tests may be done if a pelvic mass is found: ? Physical exam. ? Blood tests. ? Imaging tests: ? X-rays. ? Ultrasound. ? CT scan. ? MRI. ? A surgery to look inside your abdomen with cameras (laparoscopy). ? A biopsy that is performed with a needle or during laparoscopy or surgery. In some cases, what seemed like a pelvic mass may actually be something else, such as a mass in one of the organs that is near the pelvis, an infection called an abscess, or scar tissue that formed after a surgery. A physical exam and tests may be done once, or they may be done regularly for a period of time. Exams and tests that are done regularly will help monitor whether the mass or tissue change is growing and becoming a concern. How is this treated? Treatment is not always needed for a pelvic mass. Your health care provider may recommend careful monitoring (watchful waiting) and regular tests and exams. Treatment will depend on the cause of the mass. Follow these instructions at home: What you need to do at home will depend on the cause of the mass. Follow the instructions that your health care provider gives to you. In general: ? Take mbia-irt-alugymc and prescription medicines only as told by your health care provider. ? If you were prescribed an antibiotic medicine, take it as told by your health care provider. Do not stop taking the antibiotic even if you start to feel better. ? Return to your normal activities as told by your health care provider. Ask your health care provider what activities are safe for you. ? Keep all follow-up visits. This is important. Contact a health care provider if: ? You develop new symptoms. ? You have a fever or chills. ? You cannot tolerate prescribed medicines. Get help right away if: ? You have blood in your stools (feces) or urine. ? You have an abnormal or increased amount of vaginal bleeding. ? You develop sudden or worsening pain that is not relieved by medicine. ? You develop severe bloating in your abdomen or your pelvis. ? You cannot pass urine or stools. Summary ? A pelvic mass is an abnormal growth in the pelvis. The pelvis is the area between your hip bones. It includes the bladder, rectum, uterus, and ovaries. ? Pelvic masses include ovarian cysts, tumors, ectopic , or infections. ? Your health care provider may recommend that you have tests to diagnose the cause of the pelvic mass. ? Treatment will depend on the cause of the mass. This information is not intended to replace advice given to you by your health care provider. Make sure you discuss any questions you have with your health care provider. Document Revised: 02/14/2022 Document Reviewed: 02/14/2022 [employer] Patient Education ? 2022 [employer] Normal [facility] Physician Referralon 023 Physician Referral [id number] 0CD:127 Normal [facility] Urology Office/Clinic Noteon 04-02-2023 Urology Office/Clinic Note Chief Complaint new patient HPI Staff 63 year old female new patient referral per Dr. Nora Ni due to left renal pelvis cystic mass Dysuria: no Incomplete bladder emptying: no Hematuria: no Frequency: no Urgency: no Nocturia: no Stream: good stream Leaking: no Post void dripping: no Wearing pads/ Depends: no Urge incontinence: no Stress incontinence: no Incontinence without Sensory Awareness: no Abdominal pain: no Flank pain: no Sexual complaints: no History of Present Illness Tests reviewed: reviewed UA I have reviewed the previous health record information and history for this patient from Dr. Melendez. I have reviewed and verified the staff HPI to be accurate for this encounter. There have been no associated fever, chills, flank pain, or blood in the urine. Denies any urinary infections since last encounter. Review of Systems PHQ Score Initial Depression Screen Score: 0 ROS - Provider Constitutional: denies weight loss, denies hot flashes. Eyes: denies eye problems. Gastrointestinal: denies nausea, denies vomiting. Cardiovascular: denies chest pain or angina. Integumentary: no dryness Musculoskeletal: denies musculoskeletal symptoms. ENMT: denies otolaryngeal symptoms. Respiratory: no shortness of breath. Heme/Lymph: denies easy bleeding tendency, denies easy bruising tendency. Psychiatric: no confusion, no anxiety. Genitourinary: denies vaginal discharge, denies incontinence, denies dysuria, denies hematuria, denies urinary frequency, denies amenorrhea, denies menorrhagia, denies abnormal bleeding, denies pelvic pain, denies genital sores, and denies decreased libido. Physical Exam Vitals & Measurements HR: 95(Peripheral) BP: 152/80 HT: 62 in HT: 157.4 cm WT: 69.0 kg WT: 151.8 lb BMI: 27.85 General Appearance: alert , no acute distress, well nourished, well developed female. Genitourinary: bladder nonpalpable, no flank pain. Assessment/Plan 1. Pelvic mass (R19.00: Intra-abdominal and pelvic swelling, mass and lump, unspecified site) Imaging shows left complex cyst vs cystic mass. Renal US was done due to her renal function being low. Educated pt on the differences between a complex cyst and a cystic mass. UA today is negative for blood and infection. -Will order a CT w/o contrast. Follow up after CT w/o contrast or sooner if needed. Pt understands and agrees with plan. 2. Chronic kidney disease, stage 3 (N18.30: Chronic kidney disease, stage 3 unspecified) Labs 01/14/23 - GFRe 48, increased risk of contrast toxicity, given Stage III renal failure. The patient is here with her today. She had a renal ultrasound ordered by nephrology secondary to stage III kidney failure. She subsequently referred to me for evaluation of cystic mass. The original report that was faxed from the [facility] was unreadable. We had a long discussion about the etiology of kidney masses and cysts etc. Currently unable to look at the study as well secondary to the [facility] is new electronic medical record. The report is now faxed and is now readable. Both kidneys appear to be within normal limits. The cystic mass versus multiseptated cyst is actually within the left true pelvis and measures 18.0 x 15.3 x 11.6 cm. I let the patient and her know this. She needs a CT scan of the abdomen pelvis but this has to be without contrast secondary to her renal failure. Depending on findings, may be recommending referral to [facility]. Absence of hematuria is noted on the urinalysis today. Patient and her are in agreement with the plan to follow-up after CT scan is obtained. 30 min spent. Follow-up With When Contact Information RYAN SEXTON, Wisam Avery, URL [address] [address]- Additional Instructions: Sched CT w/o Contrast Patient Education Pelvic Mass, Female I, Jennifer Bradford, personally scribed for Dr. Davis on 04/02/2023 09:34:01. . Documentation recorded by the scribJennifer cortes, accurately reflects the services(s) I performed and decisions made by me. Authenticated by Dr. Davis on 04/02/2023 09:35:36. Problem List/Past Medical History Ongoing Chronic kidney disease, stage 3 Diabetes Hypertension Hypothyroid Pelvic mass Seizure disorder Historical No qualifying data Procedure/Surgical History Hysterectomy, Thyroidectomy, Tonsillectomy. Medications atorvastatin 40 mg Tab hydrochlorothiazide 25 mg Tab irbesartan 300 mg Tab lamotrigine 100 mg Tab levothyroxine 112 mcg (0.112 mg) Tab metformin 500 mg Tab omeprazole 40 mg Cap-DR Allergies No Known Allergies Social History Tobacco Never (less than 100 in lifetime) Tobacco Use:., 04/02/2023 Family History Hypertension: Mother. Immunizations Vaccine Date Status SARS-CoV-2 (COVID-19) mRNA BNT-162b2 vax 10/10/2021 Recorded SARS-CoV-2 (COVID-19) mRNA BNT-1 (more content not included)... Normal [facility] Comment on above: Result Comment: Elec tronically Signed By: Wisam DAVIS MD\.br\Date and Time Signed: 04/02/23 09:38 EDT\.br\Electronically Co-Signed By: Jennifer Bradford\.br\Date and Time Co-Signed: 04/02/23 09:34 EDT CBC AUTO DIFFon 02-09-2023 BASO # 0.0 103/ul Normal 0.0-0.1 [facility] Comment on above: Performed By: #### C BC #### [facility] [address] [place] [address] Dr. Larissa Loco Basophils/100 WBC (Bld) 0.5 % Normal 0.2-2.0 [facility] Comment on above: Performed By: #### C BC #### [facility] [address] [place] [address] Dr. Larissa Loco EO # 0.1 103/ul Normal 0.0-0.7 [facility] Comment on above: Performed By: #### C BC #### [facility] [address] [place] [address] Dr. Larissa Loco Eosinophils/100 WBC (Bld) 2.0 % Normal 0.9-7.0 [facility] Comment on above: Performed By: #### C BC #### [facility] [address] [place] [address] Dr. Larissa Loco Erythrocyte distribution width (RBC) [Ratio] 13.2 % Normal 11.0-15.0 [facility] Comment on above: Performed By: #### C BC #### [facility] [address] [place] [address] Dr. Larissa Loco Hematocrit (Bld) [Volume fraction] 33.9 % Critically low 36.0-48.0 [facility] Comment on above: Performed By: #### C BC #### [facility] [address] [place] [address] Dr. Larissa Loco Hemoglobin (Bld) [Mass/Vol] 11.3 g/dL Critically low 12.0-16.0 [facility] Comment on above: Performed By: #### C BC #### [facility] [address] [place] [address] Dr. Larissa Loco IG # 0.02 10e3/ul Normal 0.00-0.03 [facility] Comment on above: Performed By: #### C BC #### [facility] [address] [place] [address] Dr. Larissa Loco IG % 0.3 % Normal 0.0-0.5 [facility] Comment on above: Performed By: #### C BC #### [facility] [address] [place] [address] Dr. Larissa Loco LYMPH # 2.6 103/ul Normal 1.2-3.8 [facility] Comment on above: Performed By: #### C BC #### [facility] [address] [place] [address] Dr. Larissa Loco Lymphocytes/100 WBC (Bld) 39.9 % Normal 20.5-60.0 [facility] Comment on above: Performed By: #### C BC #### [facility] [address] [place] [address] Dr. Larissa Loco MANUAL DIFF REQ NO Normal [facility] Comment on above: Performed By: #### C BC #### [facility] [address] [place] [address] Dr. Larissa Loco MCH (RBC) [Entitic mass] 28.1 pg Normal 26.7-34.0 [facility] Comment on above: Performed By: #### C BC #### [facility] [address] [place] [address] Dr. Larissa Loco MCHC (RBC) [Mass/Vol] 33.3 g/dL Normal 29.9-35.2 [facility] Comment on above: Performed By: #### C BC #### [facility] [address] [place] [address] Dr. Larissa Loco MCV (RBC) [Entitic vol] 84.3 fL Normal 81.0-99.0 [facility] Comment on above: Performed By: #### C BC #### [facility] [address] [place] [address] Dr. Larissa Loco MONO # 0.5 103/ul Normal 0.3-0.8 [facility] Comment on above: Performed By: #### C BC #### [facility] [address] [place] [address] Dr. Larissa Loco Monocytes/100 WBC (Bld) 7.8 % Normal 1.7-12.0 [facility] Comment on above: Performed By: #### C BC #### [facility] [address] [place] [address] Dr. Larissa Loco NEUT # 3.2 103/ul Normal 1.4-6.5 [facility] Comment on above: Performed By: #### C BC #### [facility] [address] [place] [address] Dr. Larissa Loco Neutrophils/100 WBC (Bld) 49.5 % Normal 43.0-75.0 [facility] Comment on above: Performed By: #### C BC #### [facility] [address] [place] [address] Dr. Larissa Loco Platelet mean volume (Bld) [Entitic vol] 8.4 fL Critically low 9.5-13.5 [facility] Comment on above: Performed By: #### C BC #### [facility] [address] [place] [address] Dr. Larissa Loco PLT 324 103/ul Normal 150-450 [facility] Comment on above: Performed By: #### C BC #### [facility] [address] [place] [address] Dr. Larissa Loco RBC 4.02 106/ul Critically low 4.20-5.40 [facility] Comment on above: Performed By: #### C BC #### [facility] [address] [place] [address] Dr. Larissa Loco WBC 6.4 103/ul Normal 4.0-11.0 [facility] Comment on above: Performed By: #### C BC #### [facility] [address] [place] [address] Dr. Larissa Loco OCC BLD IMMUNO SCREENon 01-19 OCCULT BLOOD Positive Abnormal NEGATIVE [facility] Comment on above: Performed By: #### O BSCRN #### [facility] [address] [place] [address] Dr. Larissa Loco PROF 14(COMP METB)on 023 Albumin [Mass/Vol] 4.0 g/dL Normal 3.4-5.0 [facility] Comment on above: Performed By: #### C MP #### [facility] [address] [place] [address] Dr. Larissa Loco Albumin/Globulin [Mass ratio] 1.0 {ratio} Normal [facility] Comment on above: Performed By: #### C MP #### [facility] [address] [place] [address] Dr. Larissa Loco ALP [Catalytic activity/Vol] 55 U/L Normal 46-116 [facility] Comment on above: Performed By: #### C MP #### [facility] [address] [place] [address] Dr. Larissa Loco ALT [Catalytic activity/Vol] 25 U/L Normal 14-59 [facility] Comment on above: Performed By: #### C MP #### [facility] [address] [place] [address] Dr. Larissa Loco Anion gap [Moles/Vol] 14.1 mmol/L Normal [facility] Comment on above: Performed By: #### C MP #### [facility] [address] [place] [address] Dr. Larissa Loco AST [Catalytic activity/Vol] 24 U/L Normal 15-37 [facility] Comment on above: Performed By: #### C MP #### [facility] [address] [address] [address] Larissa Loco Bilirubin [Mass/Vol] 0.4 mg/dL Normal 0.2-1.0 [facility] Comment on above: Performed By: #### C MP #### [facility] [address] [address] [address] Larissa Loco Calcium [Mass/Vol] 8.8 mg/dL Normal 8.5-10.1 [facility] Comment on above: Performed By: #### C MP #### [facility] [address] [address] [address] Larissa Loco Chloride [Moles/Vol] 97 mmol/L Critically low 98-107 [facility] Comment on above: Performed By: #### C MP #### [facility] [address] [address] [address] Larissa Loco CO2 [Moles/Vol] 22.6 mmol/L Normal 21.0-32.0 [facility] Comment on above: Performed By: #### C MP #### [facility] [address] [address] [address] Larissa Loco Creatinine [Mass/Vol] 1.52 mg/dL Critically high 0.55-1.02 [facility] Comment on above: Performed By: #### C MP #### [facility] [address] [address] [address] Larissa Loco EGFR-AF CITIZ[place] 42 mL/min/1.73m2 Critically low >=60 [facility] Comment on above: Performed By: #### C MP #### [facility] [address] [address] [address] Larissa Loco EGFR-NON AF CITIZEN OF [place] 34 mL/min/1.73m2 Critically low >=60 [facility] Comment on above: Performed By: #### C MP #### [facility] [address] [address] [address] Larissa Loco Globulin (S) [Mass/Vol] 4.1 g/dL Normal [facility] Comment on above: Performed By: #### C MP #### [facility] [address] [address] [address] Larissa Loco Glucose [Mass/Vol] 148 mg/dL Critically high 74-[address] [facility] Comment on above: Performed By: #### C MP #### [facility] [address] [address] [address] Larissa Loco Potassium [Moles/Vol] 3.7 mmol/L Normal 3.5-5.1 [facility] Comment on above: Performed By: #### C MP #### [facility] [address] [address] [address] Larissa Loco Protein [Mass/Vol] 8.1 g/dL Normal 6.4-8.2 [facility] Comment on above: Performed By: #### C MP #### [facility] [address] [address] [address] Larissa Loco Sodium [Moles/Vol] 130 mmol/L Critically low 136-145 [facility] Comment on above: Performed By: #### C MP #### [facility] [address] [address] [address] Larissa Loco Urea nitrogen [Mass/Vol] 26.0 mg/dL Critically high 7.0-18.0 [facility] Comment on above: Performed By: #### C MP #### [facility] [address] [address] [address] Larissa Loco Urea nitrogen/Creatinine [Mass ratio] 17.1 mg/mg Normal [facility] Comment on above: Performed By: #### C MP #### [facility] [address] [address] [address] Larissa Loco PROTIMEon 02-09-2023 INR Coag (PPP) [Relative time] 0.94 {INR} Normal [facility] Comment on above: Performed By: #### P TT, PT #### [facility] [address] [address] [address] Larissa Loco INR GUIDELINES SEE BELOW Normal [facility] Comment on above: Result Comment: SVEN RED INR: 2.0 - 3.0 CONDITIONS NOT LISTED BELOW 2.5 - 3.5 FOR PROSTHETIC HEART VALVE REPLACEMENT 2.5 - 3.5 RECURRENT THROMBOSIS Performed By: #### P TT, PT #### [facility] [address] [place] [address] Dr. Larissa Loco PT Coag (PPP) [Time] 10.0 s Normal 9.0-11.6 [facility] Comment on above: Performed By: #### P TT, PT #### [facility] [address] [address] [address] Larissa Loco PTTon 02-09-2023 aPTT Coag (Bld) [Time] 26.3 s Normal 22.3-36.2 [facility] Comment on above: Performed By: #### P TT, PT #### [facility] [address] [place] [address] Dr. Larissa Loco XR CHEST 1 Von 02-09-2023 XR CHEST 1 V EXAMINATION: XR CHES T 1 V HISTORY: Epigastric pain COMPARISON: None. TECHNIQUE: Portable chest FINDINGS: The lung parenchyma is free of consolidation or infiltrate. No pneumothorax or pleural effusion. The cardiac, mediastinal and hilar contours are normal. The visualized osseous structures exhibit no gross abnormality. IMPRESSION: No acute cardiopulmonary abnormality. Electronically authenticated by: RANJIT GAFFNEY Date: 2023-02-09 18:41 Normal [facility] Vital Signs Date Time Vital Sign Value Performing Clinician Facility 01-07-2024 13:42-0400 Body height 157.5 cm [facility] 01-07-2024 13:42-0400 Body mass index (BMI) [Ratio] 27.44 kg/m2 [facility] 01-07-2024 13:42-0400 Body weight 68.04 kg [facility] 07-08-2023 10:20-0400 Body height 157.48 cm Nora Ni Other [facility] Other 07-08-2023 10:20-0400 Body mass index (BMI) [Ratio] 25.6 kg/m2 [facility] Other [facility] Other 07-08-2023 10:20-0400 Body temperature 97.3 [degF] Aziz Bakhous Other [facility] Other 07-08-2023 10:20-0400 Body weight 63.5 kg Aziz Bakhous Other [facility] Other 07-08-2023 10:20-0400 Diastolic blood pressure 72 mm[Hg] Aziz Bakhous Other [facility] Other 07-08-2023 10:20-0400 Respiratory rate 16 /min Aziz Bakhous Other [facility] Other 07-08-2023 10:20-0400 SaO2% (BldA) [Mass fraction] 99 % Aziz Bakhous Other [facility] Other 07-08-2023 10:20-0400 Systolic blood pressure 136 mm[Hg] Aziz Bakhous Other [facility] Other 03-18-2023 15:40-0400 Body height 157.48 cm Aziz Bakhous Other [facility] Other 03-18-2023 15:40-0400 Body mass index (BMI) [Ratio] 27.83 kg/m2 Aziz Bakhous Other [facility] Other 03-18-2023 15:40-0400 Body temperature 97.6 [degF] Aziz Bakhous Other [facility] Other 03-18-2023 15:40-0400 Body weight 69.04 kg Aziz Bakhous Other [facility] Other 03-18-2023 15:40-0400 Diastolic blood pressure 81 mm[Hg] Nora Grigsbys Other [facility] Other 03-18-2023 15:40-0400 Respiratory rate 16 /min Azmaylin Grigsbys Other [facility] Other 03-18-2023 15:40-0400 SaO2% (BldA) [Mass fraction] 98 % Nora Ni Other [facility] Other 03-18-2023 15:40-0400 Systolic blood pressure 163 mm[Hg] Nora Acostamurphy Other [facility] Other Encounters Encounter Date Encounter Type Care Provider Facility Start: 05-18-2024 End: 05-18-2024 ambulatory ANNETTA POON Not Available Start: 04-26-2024 End: 04-26-2024 ambulatory FANI HARVEY Not Available Start: 01-07-2024 End: 01-10-2024 ambulatory ANNETTA POON [facility] Start: 01-07-2024 End: 01-09-2024 Subsequent hospital visit by physician [facility] Comment on above: Encounter for screen ing mammogram for malignant neoplasm of breast Start: 11-25-2023 End: 11-25-2023 ambulatory ANNETTA POON Not Available Start: 11-24-2023 Chart abstracting Annetta Poon MD Work Phone: [facility] Start: 07-08-2023 End: 07-08-2023 ambulatory Nora Ni Other [facility] Other Start: 07-08-2023 Office outpatient visit [address] [facility] Start: 05-26-2023 Assay of hemosiderin , quant Annetta Poon MD Work Phone: [facility] Start: 04-02-2023 End: 04-03-2023 ambulatory Wisam DAVIS Facility:[facility] Start: 03-27-2023 ambulatory Wisam DAVIS Facility:[facility] Start: 03-18-2023 End: 03-18-2023 ambulatory Nora Ni Other [facility] Other Start: 03-18-2023 Office outpatient ne w 30 minutes Azmaylin Grigsbys [facility] Start: 02-09-2023 End: 02-09-[address] ANNETTA POON Facility:[facility] Procedures Date Procedure Procedure Detail Performing Clinician Start: 01-07-2024 Screening mammography bi 2-view breast inc cad Annetta Poon MD Work Phone: Start: 05-13-2023 H/O: hysterectomy History of hysterectomy Annetta Poon MD Work Phone: Start: 05-13-2023 Laboratory test result abnormal Abnormal laboratory test Annetta Poon MD Work Phone: Start: 04-10-2023 Colonoscopy Annetta Poon MD Work Phone: Start: 04-25-2022 Mammography Annetta Poon MD Work Phone: Plan of Treatment Date Care Activity Detail Author Start: 04-10-2033 Screening for malign ant neoplasm of colon [facility] Start: 10-05-2028 DTaP/Tdap/Td vaccine (2 - Td or Tdap) DTaP/Tdap/Td vaccine (2 - Td or Tdap) [facility] Start: 01-06-2026 Screening for malign ant neoplasm of breast Breast cancer screen [facility] Start: 10-23-2025 Glaucoma screening Diabetes: R etinopathy Screening [facility] Start: 05-26-2024 Medicare Annual Wellness (AWV) Medicare Annual Wellness (AWV) [facility] Start: 04-18-2024 Influenza vaccination Influenza Vacc ine (#1) [facility] Comment on above: Postponed from 06/20 (Other Patient Reasons) Start: 02-10-2024 Screening for malign ant neoplasm of colon FOBT [facility] Start: 11-27-2023 Annual Wellness Visi t (Medicare) Annual Wellness Visit (Medicare) [facility] Strategic Funding Source Start: 11-25-2023 End: 11-25-2023 Patient encounter procedure 11/25/2023 9:00 AM EST Office Visit [facility] [address] [facility] [address] [place] [id number] Annetta Poon MD [address] [facility] [address] [place] [address] [facility] Start: 08-26-2023 Hemoglobin A1c measurement Diabetes: Hemoglobin A1C [facility] Start: 06-20-2023 COVID-19 Vaccine ( season) COVID-19 Vaccine ( season) [facility] Start: 05-20-2023 Influenza vaccination Flu vaccine (# 1) [facility] Start: 04-25-2023 Screening for malign ant neoplasm of breast Mammogram [facility] Start: 2023 Pneumococcal 65+ yea rs Vaccine (1 of 1 - PCV) Pneumococcal 65+ years Vaccine (1 of 1 - PCV) [facility] Start: 04-28-2022 Screening for malign ant neoplasm of colon FIT-DNA [facility] Start: 2018 Respiratory Syncytia l Virus (RSV) or age 60 yrs+ (1 - 1-dose 60+ series) Respiratory Syncytial Virus (RSV) or age 60 yrs+ (1 - 1-dose 60+ series) [facility] Start: 2013 Screening for osteoporosis DEXA (modify frequency per FRAX score) [facility] Start: 01-16-2008 Shingles vaccine (1 of 2) Shingles vaccine (1 of 2) [facility] Start: 2003 Screening for malign ant neoplasm of colon [facility] Start: 1998 [facility]id panel [facility]ids [facility] Start: 1993 Diabetes screen Diabetes screen [facility] Start: 01-16-1988 Screening for malign ant neoplasm of cervix [facility] Start: 1979 Screening for malign ant neoplasm of cervix Pap smear [facility] Start: 01-16-1976 Hepatitis C screening Hepatitis C sc reen [facility] Start: 1973 HIV screening HIV screen [facility] Start: 1970 Depression Screen Depression Screen [facility] Start: 1958 Screening for malign ant neoplasm of colon [facility] Immunizations Immunization Date Immunization Notes Care Provider Fa cility 10-05-2018 tetanus toxoid, redu nicole diphtheria toxoid, and acellular pertussis vaccine, adsorbed Annetta Poon MD Work Phone: [facility] Payers Date Payer Category Payer Medicare MEDICARE MEDICAR E PART B [id number] 2022-Present [address] [address] [place] [address] Medicare [id number] 2022 Private Health Insurance [employer] A [place] SUPPLEMENT [id number] 2022-Present [address] [place] [address] Supplement [id number] 1959 Medicare [id number] 1959 Private Health Insurance CLI [id number] 1958 Unknown [id number] 1958 Unknown [id number] 1958 Unknown [id number] 1958 Unknown [id number] 1958 Unknown [id number] 1958 Unknown [id number] Social History Date Type Detail Facility Unknown if ever smoked [facility] Other Start: 05-22-2023 End: 01-07-2024 Sex Assigned At [facility] Other Start: 11-27-2017 End: 05-01-2023 Tobacco smoking status WVIS Never smoked tobacco [facility] Start: 11-27-2017 End: 05-01-2023 Tobacco use and exposure Smokeless tobacco non-user [facility] Start: 11-24-2023 Alcohol intake Ex-drinker (finding) [facility] Start: 05-22-2023 End: 01-07-2024 History of Social function [facility] Start: 05-07-2023 Alcohol Comment caffeine 1-2 c ups per day [facility] Start: 1960 Sex Assigned At Not on file [facility] Evaluation note 07-08-2023 Note Date & Type Note Facility 07-08-2023 Evaluation note Encounter Date Diagnosis Assessment Notes Jun, Stage 3a chronic kidney disease (ICD-10 - N18.31) patient has mild CKD likely from diabetic and hypertensive nephropathy. Baseline creatinine around 1.1 to 1.3 mg deciliter. This visit creatinine 1.07 mg deciliter and GFR 51 mm/min. Patient has mild proteinuria. Already on ARB. Blood pressure and diabetes are well controlled. Volume status well controlled. Advised the patient to avoid NSAIDs completely and follow-up the patient in 6 months Jun, Hypertensive nephropathy (ICD-10 - I12.9) This is a likely etiology of the patient's CKD. Blood pressure seems well controlled with the current blood pressure medication. I will stop hydrochlorothiazide due to hyponatremia. I will add amlodipine 5 mg p.o. daily instead. I will continue same dose of ARB. Advised the patient to monitor her blood pressure at home and to call my office if her blood pressure remains elevated Jun, Type 2 diabetes mellitus with diabetic chronic kidney disease (ICD-10 - E11.22) Patient only metformin. Protein to creatinine ratio 200 mg/g. Patient already on ARB for hypertension and kidney protection. Keep hemoglobin A1c below 7%. Patient follows with his PCP for this purpose Jun, Hyponatremia (ICD-10 - E87.1) Serum sodium level low at 128 mmol/L. I will stop hydrochlorothiazide. I will recheck serum sodium level next visit Jun, Anemia, unspecified type (ICD-10 - D64.9) Hemoglobin 10.6 g deciliter. Denied active bleeding. I will check iron studies study along with folate and vitamin B12. [facility] Other Evaluation note 03-18-2023 Note Date & Type Note Facility 03-18-2023 Evaluation note Encounter Date Diagnosis Assessment Notes February, Stage 3a chronic kidney disease (ICD-10 - N18.31) patient has mild CKD likely from diabetic and hypertensive nephropathy. Baseline creatinine around 1.2 to 1.3 mg deciliter. I will check protein to continue ratio with next visit. Keep hemoglobin A1c below 7% and blood pressure below 130/80. Avoid NSAIDs. I will check renal ultrasound along with bone mineral disease lab prior to next visit. I asked the patient to continue good hydration. Follow-up with the patient in 4 months February, Type 2 diabetes mellitus with diabetic chronic kidney disease (ICD-10 - E11.22) Patient only metformin. I will check protein to creatinine ratio next visit. Patient already on ARB for hypertension and kidney protection. Keep hemoglobin A1c below 7%. Patient follows with his PCP for this purpose February, Essential hypertension (ICD-10 - I10) Blood pressure seems well controlled. Patient already on ARB. I asked the patient to follow low-salt diet. Asked patient to monitor his blood pressure at home and call my office if his blood pressure persistently more than 140/90. 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 STUD Y Medical History SEIZURE DISORDER Medical History DIABETES MELLITUS TYPE 2 Medical History STAGE 3a CHRONIC KIDNEY DISEASE Medical History SEIZURES Surgical History TONSILLECTOMY Surgical History THYROIDECTOMY DISEASE Surgical History HYSTERECTOMY DISEASE Hospitalization History FALL ON ICE CONCUSSION 2 018 [facility] Other History general Narrative - Reported Note Date & Type Note Facility History general Narrative - Reported Type Medical History HYPOTHYROID Medical History HYPERTENSION Medical History HYPERTRIGLYCERIDEMIA 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 STUD Y Medical History SEIZURE DISORDER Medical History DIABETES MELLITUS TYPE 2 Medical History STAGE 3a CHRONIC KIDNEY DISEASE Medical History SEIZURES Surgical History TONSILLECTOMY Surgical History THYROIDECTOMY DISEASE Surgical History HYSTERECTOMY DISEASE Surgical History MASS REMOVED FROM ABDOMINAL ARE A 06/19/2023 Hospitalization History FALL ON ICE CONCUSSION 2 018 Hospitalization History SEE ABOVE [facility] Other Summary Purpose Family History No Family History Records FoundNo Family History Records FoundNo Family History Records FoundNo Family History Records Found Advance Directives No Advanced Directives Records FoundLatest Code Status on File Code Status Date Activated Date Inactivated Comments Full Code 11/27/2017 11:48 PM 11/28/2017 12:11 PM Reason for Referral Specialty Diagnoses / Procedures Referred By [place] t Referred To Contact Radiology Diagnoses Encounter for screening mammogram for malignant neoplasm of breast Procedures JANELLE COBY DIGITAL SCREEN BILATERAL Annetta Poon MD [address] [place] [address] Referral ID Status Reason Start Date Expiration Date V isits Requested Visits Authorized [id number] Pending Review 11/26/2023 11/25/2024 1 1 Additional Source Comments INFORMATION SOURCE (unrecogn ized section and content) DATE CREATED AUTHOR 02/12/2023 [facility] DATE CREATED AUTHOR AUTHOR'S ORGANIZ ATION 04/03/2023 [facility] DATE CREATED AUTHOR AUTHOR'S ORGANIZ ATION [facility]20[facility] DATE CREATED AUTHOR AUTHOR'S ORGANIZ ATION 05/20/2024 [facility] EPIC REASON FOR VISIT (unrecogniz ed section and content) Specialty Diagnoses / Procedures Referred By Contac t Referred To Contact Radiology Diagnoses Encounter for screening mammogram for malignant neoplasm of breast Procedures JANELLE COBY DIGITAL SCREEN BILATERAL Annetta Poon MD [address] [place] [address] Referral ID Status Reason Start Date Expiration Date V isits Requested Visits Authorized [id number] Pending Review 11/26/2023 11/25/2024 1 1 Care Teams (unrecognized sec tion and content) Colors Custodian Relationship Specialty Start Date End Date Annetta Poon MD [address] [facility] [address] [place] [address] PCP - General Family Medicine 05/01/23 Colors Custodian Relationship Specialty Start Date End Date Annetta Poon MD [address] [facility] [address] [place] [address] PCP - General Family Medicine 11/27/17 FOR RECORDS PERTAINING TO PATIENTS WHO ARE OR HAVE BEEN ENROLLED IN A CHEMICAL DEPENDENCY/SUBSTANCEABUSE PROGRAM, SOME INFORMATION MAY BE OMITTED. This clinical summary was aggregated from multiple sources. Caution should be exercised in using it in the provision of clinical care. This summary normalizes information from multiple sources, and as a consequence, information in this document may materially change the coding, format and clinical context of patient data. In addition, data may be omitted in some cases. CLINICAL DECISIONS SHOULD BE BASED ON THE PRIMARY CLINICAL RECORDS. [facility]. provides no warranty or guarantee of the accuracy or completeness of information in this document.
--- NOTE | 2024-05-24 08:07 | CT_ITS ---
[address] [address] Patient Name: MEHUL CHASE MRN: [id number] date: 1960 Sex: F Assigned Patient Location: CT Current Patient Location: Accession/Order Number: [id number] Exam Date: 05/24/2024 09:15 Report Date: 05/26/2024 04:54 At the request of: YANI POON Procedure: CT abdomen pelvis wo/w con EXAMINATION: CT abdomen pelvis wo/w con HISTORY: Abdominal Mass Left Lower Quadrant , Constipation COMPARISON: CT abdomen pelvis 04/14/2023, ultrasound pelvis 05/28/2023 TECHNIQUE: Axial, Coronal, and Sagittal images were obtained without and/or with IV contrast as indicated by examination type. Dose reduction techniques were achieved by using automated exposure control and/or adjustment of mA and/or kV according to patient size and/or use of iterative reconstruction technique. FINDINGS: LUNG BASES: No visible pulmonary or pleural disease. LIVER: No enlargement, atrophy, suspicious density, or significant focal lesion. BILIARY: No dilatation or calcification. PANCREAS: No lesion, fluid collection, or abnormal duct dilatation. SPLEEN: No enlargement or focal lesion. ADRENALS: No mass or enlargement. KIDNEYS: Left hydronephrosis and hydroureter involving the proximal ureter with mid ureter compressed between the large pelvic cyst and posterior soft tissues/spine. Unremarkable right kidney and ureter. BOWEL/MESENTERY: No visible mass, obstruction, or bowel wall thickening. AORTA/VASCULAR: Compression of the left common iliac vein between large pelvic cyst and posterior pelvic wall. No aortic aneurysm or dissection. RETROPERITONEUM: No mass or adenopathy. LYMPH NODES: No adenopathy. URINARY BLADDER: No visible focal wall thickening, lesion, or calculus. PELVIC ORGANS: Large thin-walled cyst within left pelvis 18.1 x 15.0 x 15.0 cm containing thin enhancing septations. Prior hysterectomy. No visible right or left ovary. ABDOMINAL WALL: No mass or hernia. BONES: No bony lesion or fracture. OTHER: Negative. CT/CT abdomen pelvis wo/w con IMPRESSION: 1. Interval increase in size of the large left pelvic complex cyst of uncertain etiology, both most likely ovarian in origin; now 18.1 cm in diameter. 2. Left hydronephrosis secondary to compression of left ureter by the large cyst. 3. Compression of left iliac vein by the large cyst. Correlate with left lower extremity symptoms. 4. No appreciable lymphadenopathy. Electronically authenticated by: JOSE BROWNING Date: 05/26/2024 04:54
== END 2024-05-24 07:56 | disposition home or self-care (01) ==
LOC: CT 07:55
PROVIDERS: PCP Family Medicine; Visit Provider Family Medicine
DX: R19.04 Left lower quadrant abdominal swelling, mass and lump (principal); K59.00 Constipation, unspecified; K92.1 Melena; N13.30 Unspecified hydronephrosis
CPT/HCPCS: 74178; Q9966

== ENCOUNTER 2024-05-31 08:00 | Emergency (ER) | payer MEDICARE, SELFPAY ==
[2024-05-31] VITALS (16 sets, daily range): BP systolic 115–180; BP diastolic 69–92; PULSE 62–88; TEMP 37; O2SAT 96–100; BMI 27.4
[2024-05-31] MEDS: MORPHINE SULFATE 4 MG/ML VIAL IV (08:27)
[2024-05-31] MEDS: ONDANSETRON PF 4 MG/2 ML VIAL IV (08:27)
[2024-05-31] MEDS: 0.9 % SODIUM CHLORIDE 1,000 ML 200 ML IV (08:27)
--- NOTE | 2024-05-31 08:30 | ED.ABDPAIN1 ---
HPI - Abdominal Pain General Chief Complaint: Abdominal Pain Stated Complaint: LOWER ABDOMINAL PAIN Time Seen by Provider: 05/31/24 08:02 Source: patient Mode of arrival: walk-in Limitations: no limitations History of Present Illness HPI narrative: 64-year-old female presents for abdominal pain. It is in her left lower abdomen. It became painful at 5:00 this morning, it woke her up. No constipation diarrhea fever trauma or vomiting. She does not have flank pain and has no dysuria or hematuria. Last year she had surgery for a large ovarian cyst and she states she had a CAT scan within the last week that showed the cyst this back. 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 The pain is severe and worse when she moves. Related Data Home Medications ?Medication ?Instructions ?Recorded ?Confirmed albuterol sulfate 90 mcg/actuation 2 puff inhalation Q4H PRN 06/12/23 06/18/23 aerosol inhaler (Ventolin HFA) shortness of breath or wheezing atorvastatin 40 mg tablet 40 mg PO QDAY 06/12/23 06/18/23 hydrochlorothiazide 25 mg tablet 25 mg PO QDAY 06/12/23 06/18/23 irbesartan 300 mg tablet 300 mg PO QDAY 06/12/23 06/18/23 lamotrigine 100 mg tablet 100 mg PO Q12H 06/12/23 06/18/23 levothyroxine 112 mcg tablet 112 mcg PO QDAY 06/12/23 06/18/23 metformin 500 mg tablet 500 mg PO BID 06/12/23 06/18/23 Previous Rx's ?Medication ?Instructions ?Recorded oxycodone-acetaminophen 5 mg-325 1 tab PO Q6H PRN pain 7 days #28 06/18/23 mg tablet (Percocet) tabs oxycodone-acetaminophen 5 mg-325 1 tab PO Q6H PRN pain 5 days #20 05/31/24 mg tablet (Percocet) tabs Allergies Allergy/AdvReac Type Severity Reaction Status Date / Time bacitracin Allergy Rash Verified 05/31/24 08:05 [From Neosporin ([id number])] neomycin Allergy Rash Verified 05/31/24 08:05 [From Neosporin ([id number])] polymyxin B Allergy Rash Verified 05/31/24 08:05 [From Neosporin ([id number])] Review of Systems ROS Narrative A ten point review of systems is negative except as noted above. PFSH PFSH Medical History Surgical History Family History Other Family history of bone cancer Family history of diabetes mellitus Family history of hypertension Family history of seizures Family history of throat cancer Irregular heart beat Social History Within the past year, how often did you have a drink containing alcohol: monthly or less Smoking status: Former smoker Non-prescribed substance use: denies use Previous occupational history: Retired Highest level of school completed/degree received: high school graduate Exam Narrative Exam Narrative: Nurses note and vital signs reviewed and patient is not hypoxic. General: The patient appears in no apparent distress. Patient is resting on cart. Skin: Warm, dry, no pallor noted. There is no rash noted. Head: Normocephalic, atraumatic Eye: Normal conjunctiva, no drainage Ears, Nose, Mouth, and Throat: oral mucosa is moist. Nares patent. Cardiovascular: Regular Rate and Rhythm Respiratory: Patient is in no distress, no accessory muscle use, lungs are clear to auscultation, no wheezing, rales or rhonchi Back: non-tender, no CVA tenderness bilaterally to percussion. GI: Diffusely tender, particularly tender in the left lower quadrant. No masses appreciated. Musculoskeletal: The patient has no evidence of calf tenderness, no pitting edema, symmetrical pulses noted bilaterally Neurological: A&O, normal speech Psychiatric: Cooperative Constitutional Vital Signs, click to edit/add: Last Vital Signs Temp 98.6 F 05/31/24 08:05 Pulse 64 05/31/24 11:54 Resp 16 05/31/24 11:54 BP 115/71 05/31/24 11:54 Pulse Ox 96 05/31/24 11:54 O2 Del Method Room Air 05/31/24 11:54 Course Vital Signs Vital signs: Vital Signs Temperature 98.6 F 05/31/24 08:05 Pulse Rate 88 05/31/24 08:05 Respiratory Rate 20 05/31/24 08:05 Blood Pressure 180/86 H 05/31/24 08:05 Pulse Oximetry 100 05/31/24 08:05 Temperature 98.6 F 05/31/24 08:05 Pulse Rate 64 05/31/24 11:54 Respiratory Rate 16 05/31/24 11:54 Blood Pressure 115/71 05/31/24 11:54 Pulse Oximetry 96 05/31/24 11:54 Oxygen Delivery Method Room Air 05/31/24 11:54 MDM - Abdominal Pain MDM Narrative Medical decision making narrative: Blood work is essentially normal. Ultrasound report is discussed with Dr. Hunter and the patient has an appointment to talk to Dr. Hunter in 2 days. Will be arranged then. She was prescribed Percocet. Findings are discussed thoroughly with the patient. Differential Diagnosis Differential diagnosis: Likely abdominal pain, calculus of kidney, constipation and other (Ovarian cyst) Lab Data Attestation: I reviewed the patient's lab results. Labs: Lab Results 05/31/24 05/31/24 Range/Units 08:42 08:55 WBC 7.2 (4.0-11.0) 10^3/uL RBC 3.59 L (4.20-5.40) 10^6/uL Hgb 9.3 L (12.0-16.0) g/dL Hct 29.6 L (36.0-48.0) % MCV 82.5 (81.0-99.0) fL MCH 25.9 L (26.7-34.0) pg MCHC 31.4 (29.9-35.2) g/dL RDW 14.7 (11.0-15.0) % Plt Count 417 (150-450) 10^3/uL MPV 8.1 L (9.5-13.5) fL Neut % (Auto) 66.7 (43.0-75.0) % Lymph % (Auto) 23.1 (20.5-60.0) % Lares % (Auto) 7.1 (1.7-12.0) % Eos % (Auto) 2.4 (0.9-7.0) % Baso % (Auto) 0.4 (0.2-2.0) % Neut # (Auto) 4.8 (1.4-6.5) 10^3/uL Lymph # (Auto) 1.7 (1.2-3.8) 10^3/uL Lares # (Auto) 0.5 (0.3-0.8) 10^3/uL Eos # (Auto) 0.2 (0.0-0.7) 10^3/uL Baso # (Auto) 0.0 (0.0-0.1) 10^3/uL Abs Immat Gran (auto) 0.02 (0.00-0.03) 10^3/uL Imm/Tot Granulo (auto) 0.3 (0.0-0.5) % Sodium 131 L (136-145) mmol/L Potassium 4.1 (3.5-5.1) mmol/L Chloride 96 L (98-107) mmol/L Carbon Dioxide 22.7 (21.0-32.0) mmol/L Anion Gap 16.4 BUN 20.0 H (7.0-18.0) mg/dL Creatinine 1.42 H (0.55-1.02) mg/dL Est GFR ( Amer) 45 L (>=60) Est GFR (Non-Af Amer) 37 L (>=60) BUN/Creatinine Ratio 14.1 Glucose 100 (74-106) mg/dL Calcium 9.0 (8.5-10.1) mg/dL Urine Color Lt. yellow (YELLOW) Urine Clarity Clear (CLEAR) Urine pH 6.5 (5.0-9.0) Ur Specific [place] 1.010 (1.005-1.025) Urine Protein Negative (NEG/TRACE) mg/dL Urine Glucose (UA) Negative (NEGATIVE) mg/dL Urine Ketones Negative (NEGATIVE) mg/dL Urine Occult Blood Negative (NEGATIVE) Urine Nitrite Negative (NEGATIVE) Urine Bilirubin Negative (NEGATIVE) Urine Urobilinogen 0.2 (0.2-1.0) EU/dL Ur Leukocyte Esterase Negative (NEGATIVE) Urine RBC 0-2 (0-2) #/HPF Urine WBC None seen (NONE SEEN) #/HPF Ur Squamous Epith Cells Many A (NONE/RARE) #/LPF Urine Crystals None seen (None Seen) #/HPF Urine Bacteria Small A (NONE SEEN) #/HPF Urine Casts None seen (NONE SEEN) #/LPF Urine Mucus None seen (NONE SEEN) Ur Culture Indicated? Yes Imaging Data Pelvic ultrasound: Radiologist's impression: ITS Impressions Pelvis Ultrasound 05/31/24 09:21 IMPRESSION: 16.1 cm left pelvis/adnexal complex cystic mass Electronically authenticated by: RANJIT MEYERS Date: 05/31/2024 10:53 Discharge Plan Discharge Stand Alone Forms: Portal Instructions Chief Complaint: Abdominal Pain Clinical Impression: Abdominal pain, Adnexal cyst Patient Disposition: Home, Self-Care Time of Disposition Decision: 12:02 Condition: Good Mode of Transportation: Private Vehicle Prescriptions / Home Meds: New oxycodone-acetaminophen [Percocet] 5-325 mg tablet 1 tab PO Q6H PRN (Reason: pain) 5 Days Qty: 20 0RF No Action albuterol sulfate [Ventolin HFA] 90 mcg/actuation HFA aerosol inhaler 2 puff INHALATION Q4H PRN (Reason: shortness of breath or wheezing) atorvastatin 40 mg tablet 40 mg PO QDAY hydrochlorothiazide 25 mg tablet 25 mg PO QDAY irbesartan 300 mg tablet 300 mg PO QDAY lamotrigine 100 mg tablet 100 mg PO Q12H levothyroxine 112 mcg tablet 112 mcg PO QDAY metformin 500 mg tablet 500 mg PO BID oxycodone-acetaminophen [Percocet] 5-325 mg tablet 1 tab PO Q6H PRN (Reason: pain) 7 Days Qty: 28 0RF Print Language: Divehi Instructions: Ovarian Cyst (ED), Abdominal Pain (ED) Referrals: YANI POON [Primary Care Provider] - 1 week
[2024-05-31 08:50] LABS: Basophils Percent Auto 0.4 % (0.2-2.0); Eosinophils Absolute Auto 0.2 10^3/uL (0.0-0.7); Eosinophils Percent Auto 2.4 % (0.9-7.0); Hematocrit 29.6 % (36.0-48.0); Hemoglobin 9.3 g/dL (12.0-16.0); Immature Granulocytes Abs Auto 0.02 10^3/uL (0.00-0.03); Immature Granulocytes Pct Auto 0.3 % (0.0-0.5); Lymphocytes Absolute Auto 1.7 10^3/uL (1.2-3.8); Lymphocytes Percent Auto 23.1 % (20.5-60.0); Mean Corpuscular HGB Conc 31.4 g/dL (29.9-35.2); Mean Corpuscular Hemoglobin 25.9 pg (26.7-34.0); Mean Corpuscular Volume 82.5 fL (81.0-99.0); Mean Platelet Volume 8.1 fL (9.5-13.5); Monocytes Absolute Auto 0.5 10^3/uL (0.3-0.8); Monocytes Percent Auto 7.1 % (1.7-12.0); Neutrophils Absolute Auto 4.8 10^3/uL (1.4-6.5); Neutrophils Percent Auto 66.7 % (43.0-75.0); Platelet Count 417 10^3/uL (150-450); Red Blood Count 3.59 10^6/uL (4.20-5.40); Red Cell Distribution Width 14.7 % (11.0-15.0); White Blood Count 7.2 10^3/uL (4.0-11.0)
[2024-05-31 08:59] LABS: Bilirubin Urine NEGATIVE (NEGATIVE); Blood Urine NEGATIVE (NEGATIVE); Color Urine LT. YELLOW (YELLOW); Glucose Urine UA NEGATIVE (NEGATIVE); Ketones Urine NEGATIVE (NEGATIVE); Leukocyte Esterase Urine NEGATIVE (NEGATIVE); Nitrite Urine NEGATIVE (NEGATIVE); Protein Urine NEGATIVE (NEG/TRACE); Urobilinogen Urine 0.2 EU/dL (0.2-1.0); pH Urine 6.5 (5.0-9.0)
--- OUTSIDE RECORDS SUMMARY | 2024-05-31 08:59 | XMS_ITS | CCD ---
Author Organization [facility] Team Providers Care Inspector Returned Materials Name Role Phone DR ANNETTA POON Primary Care Unavailable FELICIANO ., MR DARNELL Consulting Unavailable MINOR .OMAYRA Admitting Unavailable MINOR .OMAYRA Attending Unavailable RANJIT GAFFNEY Consulting Unavailable Nora Ni Unavailable Wisam DAVIS Attending Unavailable NORA NI Referring Unavailable Annetta Poon MD Primary Care Provider [phone] Annetta Poon MD Primary Care Provider ANNETTA POON Referring Unavailable ANNETTA POON Primary Care Unavailable ANNETTA POON Attending Unavailable FANI HARVEY Attending Unavailable ANNETTA POON Attending Unavailable Allergies Allergy Classification Reported Allergen(s) Allergy Type Date of Onset Reaction(s) Facility (3 sources) Bacitracin / Neomycin / Polymyxin B Drug Allergy 5 rash [facility] (1 source) Bacitracin Drug Allergy 3 [facility] (1 source) Bacitracin / Polymyxin B Drug Allergy 3 [facility] (1 source) Gramicidin Drug Allergy 3 [facility] (1 source) Neomycin Drug Allergy 3 [facility] (1 source) Polymyxin B Drug Allergy 3 [facility] (2 sources) Neomycin-Polymyx in-Gramicidin Drug Intolerance 8 Rash [facility] Medications Current Medications Medication Drug Class(es) Dates Sig (Normalized) Sig (Original) [id number] 200 actuat albuterol 0.09 mg/actuat metered dose [...] 02-11-2023 Episodic Other aftercare (1 source) Other moth exterminator (current) drug therapy; Translations: [OTH CARE HOME CURRENT DRUG THERAPY] Onset: 02-11-2023 Episodic Other aftercare (1 source) 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 [employer] recommends annual mammograms for women 40 years and older. [facility] RIS CONSOLIDATED EXAMINATION: SCREENING DIGITAL BILATERAL MAMMOGRAM WITH TOMOSYNTHESIS, 01/07/2024 TECHNIQUE: Screening mammography was performed with tomosynthesis including MLO and CC views of the bilateral breasts. Computer aided detection was used for the interpretation of this exam. COMPARISON: 27 August 2019; 10 April 2017 from [facility] HISTORY: Screening. Positive family history of breast cancer; paternal aunt at 70. 10 year history of oral contraception. No hormonal replacement therapy. FINDINGS: Both breasts are composed of scattered fibroglandular density. No skin thickening, nipple contour changes, suspicious calcifications, suspicious masses, areas of architectural distortion or significant interval changes are noted. Benign-appearing calcifications are demonstrated. [facility] RIS CONSOLIDATED DBT Breast - bilateral scree Scottyrdered By: Janelle Rivas on 01-08-2024 [facility] Work Phone: [facility] DIGITAL SCREEN BILElsa Pelaez 01-08-2024 [facility] DIGITAL SCREEN BILATERAL EXAMINATION: SCREENING DIGITAL BILATERAL MAMMOGRAM WITH TOMOSYNTHESIS, 01/07/2024 TECHNIQUE: Screening mammography was performed with tomosynthesis including MLO and CC views of the bilateral breasts. Computer aided detection was used for the interpretation of this exam. COMPARISON: 27 August 2019; 10 April 2017 from [facility] HISTORY: Screening. Positive family history of [...] to the patient regarding the results. [employer] recommends annual mammograms for women 40 years and older. Interpreted by: Janelle Rivas MD Signed by: Janelle Rivas MD 01/08/24 Final result Normal [facility] DBT Breast - bilateral dimitris fajardorita 01-07-2024 Radiology Study observation (narrative) [facility] RAD - Ultrasound Reporton RAD - Ultrasound Report [id number] CD:127 Normal [facility] Ambulatory Visit Summaryon 0 6-14-2023 Ambulatory Visit Summary MEHUL CHASE :1960 Visit Date:04/02/2023 Ambulatory Visit Instructions Your Diagnosis Pelvic mass Chronic kidney disease, stage 3 Tests Performed Urnls Dip Stick Auto w/o Microscopy POC [address] CT Abdomen/Pelvis w/o Contrast -- Results Pending -- Please visit your patient portal for your results or contact your primary care physician. Your Care Team Attending Physician - RYAN SEXTON, Wisam vAery Primary Care Physician - NORA NI MD [...] Schedule the Following Appointments Follow Up with RYAN SEXTON, Wisam Avery, ARTEM When: Where: [address] [place] [address] Medications What When Instructions Unchanged atorvastatin (atorvastatin 40 mg Tab) Unchanged hydrochlorothiazide (hydrochlorothiazide 25 mg Tab) Unchanged irbesartan (irbesartan 300 mg Tab) Unchanged lamotrigine (lamotrigine 100 mg Tab) Unchanged levothyroxine (levothyroxine 112 mcg (0.112 mg) Tab) Unchanged metformin (metformin 500 mg Tab) Unchanged omeprazole (omeprazole 40 mg Cap-DR) Test Results Urnls Dip Stick Auto w/o Microscopy POC 29194 (04/02/2023) Bilirubin Urine Dipstick - Negative Blood Urine Dipstick - Negative Glucose Urine Dipstick - Negative Ketones Urine Dipstick - Negative Leukocytes Urine Dipstick - Negative Nitrite Urine Dipstick - Negative Protein Urine Dipstick - Negative Specific [place] Urine Dipstick - 1.015 Urine Appearance Urine [...] gives to you. In general: ? Take jvci-wgf-twlilwg and prescription medicines only as told by [...] what activi (more content not included)... Normal [facility] Formson 04-02-2023 Forms [id number] CD:127 Normal [facility] Patient Educationon 04-02-20 23 Patient Education Obstetrics [...] gives to you. In general: ? Take jhus-yjc-kuybtvr and prescription medicines only as told by [...] provider. Document Revised: 02/14/2022 Document Reviewed: 02/14/2022 [employer] Patient Education ? 2022 [employer] Normal [facility] Physician Referralon 023 Physician Referral [id number] 0CD:127 Normal [facility] Urology Office/Clinic Noteon 04-02-2023 Urology Office/Clinic Note [...] original report that was faxed from the [facility] was unreadable. We had a long discussion about the etiology of kidney masses and cysts etc. Currently unable to look at the study as well secondary to the [facility] is new electronic medical record. The [...] on findings, may be recommending referral to METALLOGRAPHIC TECHNICIAN. Absence of hematuria is noted on the urinalysis today. Patient and her are in agreement with the plan to follow-up after CT scan is obtained. 30 min spent. Follow-up With When Contact Information RYAN SEXTON, Wisam Avery, URL [address] [address]- Additional Instructions: Sched CT w/o Contrast Patient [...] mRNA BNT-1 (more content not included)... Normal [facility] Comment on above: Result Comment: Elec tronically Signed By: Wisam DAVIS MD\.br\Date and Time Signed: 04/02/23 09:38 EDT\.br\Electronically Co-Signed By: Jennifer Bradford\.br\Date and Time Co-Signed: 04/02/23 09:34 EDT CBC AUTO DIFFon 02-09-2023 BASO # 0.0 103/ul Normal 0.0-0.1 [facility] Comment on above: Performed By: #### C BC #### [facility] [address] [place] [address] Dr. Larissa Loco Basophils/100 WBC (Bld) 0.5 % Normal 0.2-2.0 [facility] Comment on above: Performed By: #### C BC #### [facility] [address] [place] [address] Dr. Larissa Loco EO # 0.1 103/ul Normal 0.0-0.7 [facility] Comment on above: Performed By: #### C BC #### [facility] [address] [place] [address] Dr. Larissa Loco Eosinophils/100 WBC (Bld) 2.0 % Normal 0.9-7.0 [facility] Comment on above: Performed By: #### C BC #### [facility] [address] [place] [address] Dr. Larissa Loco Erythrocyte distribution width (RBC) [Ratio] 13.2 % Normal 11.0-15.0 [facility] Comment on above: Performed By: #### C BC #### [facility] [address] [place] [address] Dr. Larissa Loco Hematocrit (Bld) [Volume fraction] 33.9 % Critically low 36.0-48.0 [facility] Comment on above: Performed By: #### C BC #### [facility] [address] [place] [address] Dr. Larissa Loco Hemoglobin (Bld) [Mass/Vol] 11.3 g/dL Critically low 12.0-16.0 [facility] Comment on above: Performed By: #### C BC #### [facility] [address] [place] [address] Dr. Larissa Loco IG # 0.02 10e3/ul Normal 0.00-0.03 [facility] Comment on above: Performed By: #### C BC #### [facility] [address] [place] [address] Dr. Larissa Loco IG % 0.3 % Normal 0.0-0.5 [facility] Comment on above: Performed By: #### C BC #### [facility] [address] [place] [address] Dr. Larissa Loco LYMPH # 2.6 103/ul Normal 1.2-3.8 [facility] Comment on above: Performed By: #### C BC #### [facility] [address] [place] [address] Dr. Larissa Loco Lymphocytes/100 WBC (Bld) 39.9 % Normal 20.5-60.0 [facility] Comment on above: Performed By: #### C BC #### [facility] [address] [place] [address] Dr. Larissa Loco MANUAL DIFF REQ NO Normal [facility] Comment on above: Performed By: #### C BC #### [facility] [address] [place] [address] Dr. Larissa Loco MCH (RBC) [Entitic mass] 28.1 pg Normal 26.7-34.0 [facility] Comment on above: Performed By: #### C BC #### [facility] [address] [place] [address] Dr. Larissa Loco MCHC (RBC) [Mass/Vol] 33.3 g/dL Normal 29.9-35.2 [facility] Comment on above: Performed By: #### C BC #### [facility] [address] [place] [address] Dr. Larissa Loco MCV (RBC) [Entitic vol] 84.3 fL Normal 81.0-99.0 [facility] Comment on above: Performed By: #### C BC #### [facility] [address] [place] [address] Dr. Larissa Loco MONO # 0.5 103/ul Normal 0.3-0.8 [facility] Comment on above: Performed By: #### C BC #### [facility] [address] [place] [address] Dr. Larissa Loco Monocytes/100 WBC (Bld) 7.8 % Normal 1.7-12.0 [facility] Comment on above: Performed By: #### C BC #### [facility] [address] [place] [address] Dr. Larissa Loco NEUT # 3.2 103/ul Normal 1.4-6.5 [facility] Comment on above: Performed By: #### C BC #### [facility] [address] [place] [address] Dr. Larissa Loco Neutrophils/100 WBC (Bld) 49.5 % Normal 43.0-75.0 [facility] Comment on above: Performed By: #### C BC #### [facility] [address] [place] [address] Dr. Larissa Loco Platelet mean volume (Bld) [Entitic vol] 8.4 fL Critically low 9.5-13.5 [facility] Comment on above: Performed By: #### C BC #### [facility] [address] [place] [address] Dr. Larissa Loco PLT 324 103/ul Normal 150-450 [facility] Comment on above: Performed By: #### C BC #### [facility] [address] [place] [address] Dr. Larissa Loco RBC 4.02 106/ul Critically low 4.20-5.40 [facility] Comment on above: Performed By: #### C BC #### [facility] [address] [place] [address] Dr. Larissa Loco WBC 6.4 103/ul Normal 4.0-11.0 [facility] Comment on above: Performed By: #### C BC #### [facility] [address] [place] [address] Dr. Larissa Loco OCC BLD IMMUNO SCREENon 01-19 OCCULT BLOOD Positive Abnormal NEGATIVE [facility] Comment on above: Performed By: #### O BSCRN #### [facility] [address] [place] [address] Dr. Larissa Loco PROF 14(COMP METB)on 023 Albumin [Mass/Vol] 4.0 g/dL Normal 3.4-5.0 [facility] Comment on above: Performed By: #### C MP #### [facility] [address] [place] [address] Dr. Larissa Loco Albumin/Globulin [Mass ratio] 1.0 {ratio} Normal [facility] Comment on above: Performed By: #### C MP #### [facility] [address] [place] [address] Dr. Larissa Loco ALP [Catalytic activity/Vol] 55 U/L Normal 46-116 [facility] Comment on above: Performed By: #### C MP #### [facility] [address] [place] [address] Dr. Larissa Loco ALT [Catalytic activity/Vol] 25 U/L Normal 14-59 [facility] Comment on above: Performed By: #### C MP #### [facility] [address] [place] [address] Dr. Larissa Loco Anion gap [Moles/Vol] 14.1 mmol/L Normal [facility] Comment on above: Performed By: #### C MP #### [facility] [address] [place] [address] Dr. Larissa Loco AST [Catalytic activity/Vol] 24 U/L Normal 15-37 [facility] Comment on above: Performed By: #### C MP #### [facility] [address] [address] [address] Larissa Loco Bilirubin [Mass/Vol] 0.4 mg/dL Normal 0.2-1.0 [facility] Comment on above: Performed By: #### C MP #### [facility] [address] [address] [address] Larissa Loco Calcium [Mass/Vol] 8.8 mg/dL Normal 8.5-10.1 [facility] Comment on above: Performed By: #### C MP #### [facility] [address] [address] [address] Larissa Loco Chloride [Moles/Vol] 97 mmol/L Critically low 98-107 [facility] Comment on above: Performed By: #### C MP #### [facility] [address] [address] [address] Larissa Loco CO2 [Moles/Vol] 22.6 mmol/L Normal 21.0-32.0 [facility] Comment on above: Performed By: #### C MP #### [facility] [address] [address] [address] Larissa Loco Creatinine [Mass/Vol] 1.52 mg/dL Critically high 0.55-1.02 [facility] Comment on above: Performed By: #### C MP #### [facility] [address] [address] [address] Larissa Loco EGFR-AF ROMANIAN 42 mL/min/1.73m2 Critically low >=60 [facility] Comment on above: Performed By: #### C MP #### [facility] [address] [address] [address] Larissa Loco EGFR-NON AF ROMANIAN 34 mL/min/1.73m2 Critically low >=60 [facility] Comment on above: Performed By: #### C MP #### [facility] [address] [address] [address] Larissa Loco Globulin (S) [Mass/Vol] 4.1 g/dL Normal [facility] Comment on above: Performed By: #### C MP #### [facility] [address] [address] [address] Larissa Loco Glucose [Mass/Vol] 148 mg/dL Critically high 74-106 T [facility] Comment on above: Performed By: #### C MP #### [facility] [address] [address] [address] Larissa Loco Potassium [Moles/Vol] 3.7 mmol/L Normal 3.5-5.1 [facility] Comment on above: Performed By: #### C MP #### [facility] [address] [address] [address] Larissa Loco Protein [Mass/Vol] 8.1 g/dL Normal 6.4-8.2 [facility] Comment on above: Performed By: #### C MP #### [facility] [address] [address] [address] Larissa Loco Sodium [Moles/Vol] 130 mmol/L Critically low 136-145 [facility] Comment on above: Performed By: #### C MP #### [facility] [address] [address] [address] Larissa Loco Urea nitrogen [Mass/Vol] 26.0 mg/dL Critically high 7.0-18.0 [facility] Comment on above: Performed By: #### C MP #### [facility] [address] [address] [address] Larissa Loco Urea nitrogen/Creatinine [Mass ratio] 17.1 mg/mg Normal [facility] Comment on above: Performed By: #### C MP #### [facility] [address] [address] [address] Larissa Loco PROTIMEon 02-09-2023 INR Coag (PPP) [Relative time] 0.94 {INR} Normal [facility] Comment on above: Performed By: #### P TT, PT #### [facility] [address] [address] [address] Larissa Loco INR GUIDELINES SEE BELOW Normal [facility] Comment on above: Result Comment: SVEN RED INR: 2.0 - 3.0 CONDITIONS NOT LISTED BELOW 2.5 - 3.5 FOR PROSTHETIC HEART VALVE REPLACEMENT 2.5 - 3.5 RECURRENT THROMBOSIS Performed By: #### P TT, PT #### [facility] [address] [place] [address] Dr. Larissa Loco PT Coag (PPP) [Time] 10.0 s Normal 9.0-11.6 [facility] Comment on above: Performed By: #### P TT, PT #### [facility] [address] [address] [address] Larissa Loco PTTon 02-09-2023 aPTT Coag (Bld) [Time] 26.3 s Normal 22.3-36.2 [facility] Comment on above: Performed By: #### P TT, PT #### [facility] [address] [place] [address] Dr. Larissa Loco XR CHEST 1 Von [...] by: RANJIT GAFFNEY Date: 2023-02-09 18:41 Normal [facility] Vital Signs Date Time Vital Sign Value Performing Clinician Facility 01-07-2024 13:42-0400 Body height 157.5 cm [facility] 01-07-2024 13:42-0400 Body mass index (BMI) [Ratio] 27.44 kg/m2 [facility] 01-07-2024 13:42-0400 Body weight 68.04 kg [facility] 07-08-2023 10:20-0400 Body height 157.48 cm Nora Ni Other [facility] Other 07-08-2023 10:20-0400 Body mass index (BMI) [Ratio] 25.6 kg/m2 [employer] [facility]iano Other [facility] Other 07-08-2023 10:20-0400 Body temperature 97.3 [degF] Aziz Bakhous Other [facility] Other 07-08-2023 10:20-0400 Body weight 63.5 kg Aziz Bakhous Other [facility] Other 07-08-2023 10:20-0400 Diastolic blood pressure 72 mm[Hg] Aziz Bakhous Other [facility] Other 07-08-2023 10:20-0400 Respiratory rate 16 /min Aziz Bakhous Other [facility] Other 07-08-2023 10:20-0400 SaO2% (BldA) [Mass fraction] 99 % Aziz Bakhous Other [facility] Other 07-08-2023 10:20-0400 Systolic blood pressure 136 mm[Hg] Aziz Bakhous Other [facility] Other 03-18-2023 15:40-0400 Body height 157.48 cm Aziz Bakhous Other [facility] Other 03-18-2023 15:40-0400 Body mass index (BMI) [Ratio] 27.83 kg/m2 Aziz Bakhous Other [facility] Other 03-18-2023 15:40-0400 Body temperature 97.6 [degF] Aziz Bakhous Other [facility] Other 03-18-2023 15:40-0400 Body weight 69.04 kg Aziz Bakhous Other [facility] Other 03-18-2023 15:40-0400 Diastolic blood pressure 81 mm[Hg] Nora Grigsbys Other [facility] Other 03-18-2023 15:40-0400 Respiratory rate 16 /min Azmaylin Grigsbys Other [facility] Other 03-18-2023 15:40-0400 SaO2% (BldA) [Mass fraction] 98 % Nora Ni Other [facility] Other 03-18-2023 15:40-0400 Systolic blood pressure 163 mm[Hg] Nora Acostamurphy Other [facility] Other Encounters Encounter Date Encounter Type Care Provider Facility Start: 05-18-2024 End: 05-18-2024 ambulatory ANNETTA POON Not Available Start: 04-26-2024 End: 04-26-2024 ambulatory FANI HARVEY Not Available Start: 01-07-2024 End: 01-10-2024 ambulatory ANNETTA POON [facility] Start: 01-07-2024 End: 01-09-2024 Subsequent hospital visit by physician [facility] Comment on above: Encounter for screen ing mammogram for malignant neoplasm of breast Start: 11-25-2023 End: 11-25-2023 ambulatory ANNETTA POON Not Available Start: 11-24-2023 Chart abstracting Annetta Poon MD Work Phone: [facility] Start: 07-08-2023 End: 07-08-2023 ambulatory Nora Ni Other [facility] Other Start: 07-08-2023 Office outpatient visit 25 minutes Nora Ni [facility] Start: 05-26-2023 Assay of hemosiderin , quant Annetta Poon MD Work Phone: [facility] Start: 04-02-2023 End: 04-03-2023 ambulatory Wisam DAVIS Facility:[facility] Start: 03-27-2023 ambulatory Wisam DAVIS Facility:[facility] Start: 03-18-2023 End: 03-18-2023 ambulatory Nora Ni Other [facility] Other Start: 03-18-2023 Office outpatient ne w [...] Screening for malign ant neoplasm of colon [facility] Start: 10-05-2028 DTaP/Tdap/Td vaccine (2 - Td or Tdap) DTaP/Tdap/Td vaccine (2 - Td or Tdap) [facility] Start: 01-06-2026 Screening for malign ant neoplasm of breast [facility] screen [facility] Start: 10-23-2025 Glaucoma screening Diabetes: R etinopathy Screening [facility] Start: 05-26-2024 Medicare Annual Wellness (AWV) Medicare Annual Wellness (AWV) [facility] Start: 04-18-2024 Influenza vaccination Influenza Vacc ine (#1) [facility] Comment on above: Postponed from 06/20 (Other Patient Reasons) Start: 02-10-2024 Screening for malign ant neoplasm of colon FOBT [facility] Start: 11-27-2023 Annual Wellness Visi t (Medicare) Annual Wellness Visit (Medicare) [facility] Start: 11-25-2023 End: 11-25-2023 Patient encounter procedure 11/25/2023 9:00 AM EST Office Visit [facility] [address] [facility] [address] [place] [id number] Annetta Poon MD [address] [facility] [address] [place] [address] [facility] Start: 08-26-2023 Hemoglobin A1c measurement Diabetes: Hemoglobin A1C [facility] Start: 06-20-2023 COVID-19 Vaccine ( season) COVID-19 Vaccine ( season) [facility] Start: 05-20-2023 Influenza vaccination Flu vaccine (# 1) [facility] Start: 04-25-2023 Screening for malign ant neoplasm of breast Mammogram [facility] Start: 2023 Pneumococcal 65+ yea rs Vaccine (1 of 1 - PCV) Pneumococcal 65+ years Vaccine (1 of 1 - PCV) [facility] Start: 04-28-2022 Screening for malign ant neoplasm of colon FIT-DNA [facility] Start: 2018 Respiratory Syncytia l Virus (RSV) or age 60 yrs+ (1 - 1-dose 60+ series) Respiratory Syncytial Virus (RSV) or age 60 yrs+ (1 - 1-dose 60+ series) [facility] Start: 2013 Screening for osteoporosis DEXA (modify frequency per FRAX score) [facility] Start: 01-16-2008 Shingles vaccine (1 of 2) Shingles vaccine (1 of 2) [facility] Start: 2003 Screening for malign ant neoplasm of colon [facility] Start: 1998 [facility] Start: 1993 Diabetes screen Diabetes screen [facility] Start: 01-16-1988 Screening for malign ant neoplasm of cervix [facility] Start: 1979 Screening for malign ant neoplasm of cervix Pap smear [facility] Start: 01-16-1976 Hepatitis C screening Hepatitis C sc reen [facility] Start: 1973 HIV screening HIV screen [facility] Start: 1970 Depression Screen Depression Screen [facility] Start: 1960 Screening for malign ant neoplasm of colon [facility] Immunizations Immunization Date Immunization Notes Care Provider Fa cility 10-05-2018 tetanus toxoid, redu nicole diphtheria toxoid, and acellular pertussis vaccine, adsorbed Annetta Poon MD Work Phone: [facility] Payers Date Payer Category Payer Medicare MEDICARE MEDICAR E PART B [id number] 2022-Present [address] [address] [place] [address] Medicare [id number] 2022 Private Health Insurance [employer] A ETNA ROMANIAN LUCEDALE SUPPLEMENT [id number] 2022-Present [address] [place] [address] Supplement [id number] 1959 Medicare [id number] 1959 Private Health Insurance CLI [id number] 1958 Unknown [id number] 1958 Unknown [id number] .[id number] 1958 Unknown [id number] .[id number] 1958 Unknown [id number] .[id number] 1958 Unknown [id number] .[id number] 1958 Unknown [id number] Social History Date Type Detail Facility Unknown if ever smoked [facility] [employer] Other Start: 05-22-2023 End: 01-07-2024 Sex Assigned At [facility] [employer] Other Start: 11-27-2017 End: 05-01-2023 Tobacco smoking status VTIS Never smoked tobacco [facility] Start: 11-27-2017 End: 05-01-2023 Tobacco use and exposure Smokeless tobacco non-user [facility] Start: 11-24-2023 Alcohol intake Ex-drinker (finding) [facility] Start: 05-22-2023 End: 01-07-2024 History of Social function [facility] Start: 05-07-2023 Alcohol Comment caffeine 1-2 c ups per day [facility] Start: 1960 Sex Assigned At Not on file [facility] Evaluation note 07-08-2023 Note Date & [...] study along with folate and vitamin B12. [employer] Other Evaluation note 03-18-2023 Note Date & [...] his blood pressure persistently more than 140/90. [employer] Other Evaluation note Note Date & Type Note Facility Evaluation note Diagnosis Encounter for screening mammogram for malignant neoplasm of breast Other screening mammogram documented in this encounter [facility] History general Narrative - Reported Note [...] History FALL ON ICE CONCUSSION 2 018 [facility] Other History general Narrative - Reported Note [...] CONCUSSION 2 018 Hospitalization History SEE ABOVE [facility] Other Summary Purpose Family History No Family [...] DIGITAL SCREEN BILATERAL Annetta Poon MD [address] [place] [address] Referral ID Status Reason Start Date Expiration Date V isits Requested Visits Authorized [id number] Pending Review 11/26/2023 11/25/2024 1 1 Additional Source Comments INFORMATION SOURCE (unrecogn ized section and content) DATE CREATED AUTHOR 02/12/2023 [facility] DATE CREATED AUTHOR AUTHOR'S ORGANIZ ATION 04/03/2023 [facility] DATE CREATED AUTHOR AUTHOR'S ORGANIZ ATION 01/11/2024 [facility] DATE CREATED AUTHOR AUTHOR'S ORGANIZ ATION 05/20/2024 [facility] EPIC REASON FOR VISIT (unrecogniz ed section and content) Specialty Diagnoses / Procedures Referred By Contac t Referred To Contact Radiology Diagnoses Encounter for screening mammogram for malignant neoplasm of breast Procedures JANELLE COBY DIGITAL SCREEN BILATERAL Annetta Poon MD [address] [place] [address] Referral ID Status Reason Start Date Expiration Date V isits Requested Visits Authorized [id number] Pending Review 11/26/2023 11/25/2024 1 1 Care Teams (unrecognized sec tion and content) Inspector Returned Materials Relationship Specialty Start Date End Date Annetta Poon MD [address] [facility] [address] [place] [address] PCP - General Family Medicine 05/01/23 Inspector Returned Materials Relationship Specialty Start Date End Date Annetta Poon MD [address] [facility] [address] [place] [address] PCP - General Family Medicine 11/27/17 FOR [...] BE BASED ON THE PRIMARY CLINICAL RECORDS. [facility] [employer] [facility]. provides no warranty or guarantee of the accuracy or completeness of information in this document.
[2024-05-31 09:02] LABS: Anion Gap 16.4; BUN Creatinine Ratio 14.1; Carbon Dioxide 22.7 mmol/L (21.0-32.0); Chloride 96 mmol/L (98-107); Estimated GFR (African America 45 (>=60); Estimated GFR (Non-African Ame 37 (>=60); Glucose 100 mg/dL (74-106); Potassium 4.1 mmol/L (3.5-5.1); Sodium 131 mmol/L (136-145)
[2024-05-31 09:02] LABS: Clarity Urine CLEAR (CLEAR)
[2024-05-31 09:11] LABS: Bacteria Urine SMALL #/HPF (NONE SEEN); Cast Seen? NONE SEEN #/LPF (NONE SEEN); Crystals Seen? None Seen #/HPF (None Seen); Mucus Urine NONE SEEN (NONE SEEN); RBC Urine 0-2 #/HPF (0-2); Squamous Epithelial Cell Urine MANY #/LPF (NONE/RARE); Urine Culture Indicated YES; WBC Urine NONE SEEN #/HPF (NONE SEEN)
--- NOTE | 2024-05-31 09:21 | US_ITS ---
The [address] [address] Patient Name: MEHUL CHASE MRN: [id number] date: 1960 Sex: F Assigned Patient Location: ER Current Patient Location: ER Accession/Order Number: [id number] Exam Date: 05/31/2024 09:45 Report Date: 05/31/2024 10:53 At the request of: GABBY ADLER Procedure: US pelvis EXAMINATION: US pelvis HISTORY: Left lower quadrant pain, [address] COMPARISON: 05/24/2024, 05/28/2023 FINDINGS: Identified in the left pelvis/adnexa is a 16.1 x 14.9 x 14.9 cm septated cystic mass. This is decreased in size from the prior exam. The uterus is not visualized consistent with provided history of hysterectomy The ovaries are not definitively visualized No free fluid Findings discussed by telephone with Dr. Adler, 10:51 US/US pelvis IMPRESSION: 16.1 cm left pelvis/adnexal complex cystic mass Electronically authenticated by: RANJIT MEYERS Date: 05/31/2024 10:53
== END 2024-05-31 12:13 | disposition home or self-care (01) ==
PROVIDERS: Emergency Provider Emergency Medicine; PCP Family Medicine
DX: R10.9 Unspecified abdominal pain (principal); N94.89 Other specified conditions associated with female genital organs and menstrual cycle; Z87.891 Personal history of nicotine dependence
CPT/HCPCS: 36415; 76856; 80048; 81001; 85025; 87086; 96374; 96375; 99284; J2270; J2405